=== PATIENT | male | born 1955 | race Caucasian/White ===

== ENCOUNTER → 2016-07-27 | Outpatient (CLI) | payer BC ==
[~2016-07-27] MED LIST: ASPI-435 PO; ATOR-24 PO; DULA0.5I SC; EMPA1TAB; EMPA1TAB3 PO; GLIM4TAB2 PO; LISI5TAB PO; LPR50X PO; METF1000 PO; METFTAB PO; NTRGSL/4 UT; SITA1TAB27 PO; TADA10TA PO
--- NOTE | 2016-07-27 11:07 | DIAGNOSTIC IMAGING REPORT ---
CT LUNG SCREENING, LOW DOSE WITH COMPUTER-AIDED DETECTION (CAD) CLINICAL HISTORY: Lung cancer screening. Smoking history. COMPARISON STUDY: No previous studies for comparison. CT DOSE: 83.23 mGycm TECHNIQUE: Low-dose helical CT was acquired without intravenous contrast from lung apices to bases and reconstructed at 2.5 mm every 2 mm. CAD was utilized for this study. FINDINGS: Thyroid: Imaged portions of the thyroid gland are normal in appearance. Thoracic aorta: There is mild atherosclerotic calcification of the thoracic aorta, which is normal in caliber and demonstrates standard 3 vessel arch anatomy. Heart: The heart is mildly enlarged and without pericardial effusion. The coronary arteries are densely calcified. Lungs and pleural spaces: There is moderate emphysematous change. There is diffuse subpleural reticulation. Mild intralobular septal thickening is present in the lower lobes with mild associated groundglass change. Mild traction bronchiectasis is identified in the lower lobes. No honeycombing is seen. The appearance suggests interstitial lung disease. No airspace consolidation is identified typical for pneumonia and there is no pleural effusion. The trachea and central airways are clear. No concerning pulmonary lesion is identified. Mediastinum: There is no mediastinal lymphadenopathy. Jillian: Not well assessed without IV contrast. Axilla: Clear. Upper abdomen: A small hiatal hernia is identified. Partially visualized upper abdominal viscera is within normal limits. Skeletal structures: There are no lytic or blastic osseous lesions. IMPRESSION: 1. Emphysema. 2. Findings strongly suggest superimposed interstitial lung disease, likely with a NSIP pattern. Consider pulmonology follow-up. 3. No airspace consolidation is identified typical for pneumonia and there is no pleural effusion. 4. No concerning pulmonary lesion is identified. See below. CAD FINDINGS: Overall Lung RADS Category: 1 Lung RADS Management Recommendation: Lung-RADS 1: Continue annual screening in 12 months. Lung RADS Follow Up Date: 2017-07-27 Electronically signed by: Teo Gant M.D. 07/27/2016 11:05 AM Dictated Date/Time: 07/27/2016 10:57 AM
== END | disposition home or self-care (01) ==
LOC: C.CTS 10:11
PROVIDERS: ATTEND Family Medicine
DX: Z12.2 Encounter for screening for malignant neoplasm of respiratory organs (principal); J43.9 Emphysema, unspecified

== ENCOUNTER → 2017-01-08 | Outpatient (CLI) | payer BC ==
[2017-01-08 13:29] LABS: ESTIMATED AVERAGE GLUCOSE 189 mg/dl; HA1C FLAG Normal (Normal)
[2017-01-08 14:08] LABS: BLOOD UREA NITROGEN 13 mg/dl (7-18); BUN/CREATININE RATIO 17.2 (10-20); CALCIUM 9.9 mg/dl (8.5-10.1); CARBON DIOXIDE 24 mmol/L (21-32); CHLORIDE 105 mmol/L (98-107); CREATININE 0.76 mg/dl (0.60-1.40); GLUCOSE 124 mg/dl (70-99); POTASSIUM 4.1 mmol/L (3.5-5.1); SODIUM 136 mmol/L (136-145)
[2017-01-08 14:20] LABS: RATIO 121.1 mcg/mg (0-30.0)
== END | disposition home or self-care (01) ==
LOC: C.LABMFLN 10:43
PROVIDERS: ATTEND Family Medicine
DX: E11.9 Type 2 diabetes mellitus without complications (principal)

== ENCOUNTER → 2017-01-16 | Day surgery (SDC) | payer BC ==
[2017-01-10 09:34] VITALS: BMI 24.0
[~2017-01-16] VITALS: Ht 177.8 cm; Wt 77.3 kg
[~2017-01-16] MED LIST changes: -EMPA1TAB; +LIDOCAINE HCL 2% 2 ML VIAL (20MG/ML) ONE; -METFTAB PO; +PROPOFOL IV EMULSION 10 MG/ML 20 ML VIAL IV ONE; -SITA1TAB27 PO; +SODIUM CHLORIDE 0.9% 500ML 500 ML IV ONE; -TADA10TA PO
[2017-01-16 11:00] VITALS: Ht 177.8 cm; Wt 77.3 kg
[2017-01-16 11:05] VITALS: TEMP 36.7
--- NOTE | 2017-01-16 11:31 | Endo History and Physical ---
History & Physical Date of Service: Jan 16, 2017. Chief Complaint: Screening Referring Physician: Dr. Ding History of Present Illness 61 yo CM who presents for screening colonoscopy. Past Medical History Diabetes, High Cholesterol, [place] Past Surgical History Hx Cardiac Surgery: Yes (HEART CATH, STENTS X2) Hx Internal Defibrillator: No Hx Pacemaker: No Hx Abdominal Surgery: Yes (APPY) Hx of Implantable Prosthesis: No Hx Post-Op Nausea and Vomiting: No Hx Cancer Surgery: Yes (SKIN CANCER REMOVAL) Hx Thoracic Surgery: No Hx Orthopedic: Yes (RT SHOULDER, RT KNEE X2, RT TRIGGER FINGER RELEASE, RT CTR) Hx Urinary Tract Surgery: No Family History None Social History Smoking Status: Current Every Day Smoker Hx Substance Use: No Hx Alcohol Use: Yes (OCCASIONAL) Allergies Coded Allergies: No Known Allergies (Verified , 01/16/17) Current Medications Reported Home Medications Medications Dose Route/Sig Max Daily Dose Days Date Category Trulicity (Dulaglutide) 1.5 Mg/0.5 Ml Inj 1.5 Mg SC Saturday01/10/17 Reported Nitrostat (Nitroglycerin) 0.4 Mg Tab 0.4 Mg UT UD PRN 01/10/17 Reported Aspirin 81 (Aspirin) 81 Mg Tab 1 Tab PO QAM 01/10/17 Reported Glucophage (Metformin Hcl) 1,000 Mg Tab 1,000 Mg PO BID 01/10/17 Reported Jardiance (Empagliflozin) 25 Mg Tab 1 Tab PO QAM 01/10/17 Reported Metoprolol Tartrate 50 Mg Tab 1 Tab PO QAM 12/16/14 Reported Prinivil (Lisinopril) 5 Mg Tab 1 Tab PO QAM 12/16/14 Reported Glimepiride 4 Mg Tab 1 Tab PO BID 12/16/14 Reported Lipitor (Atorvastatin Calcium) 40 Mg Tab 1 Tab PO QAM 12/16/14 Reported Vital Signs Weight (Kilograms): 77.27 Height (Feet): 5 Height (Inches): 10 Date Time Temp Pulse Resp B/P (MAP) Pulse Ox O2 Delivery O2 Flow Rate FiO2 01/16/17 11:05 36.7 62 16 121/73 (89) 98 Room Air Physical Exam General Appearance: WD/WN, no apparent distress Respiratory/Chest: Auscultation: breath sounds normal Cardiovascular: Heart Auscultation: RRR Abdomen: Bowel Sounds: normal Inspection & Palpation: soft, non-distended, no tenderness, guarding & rebound Assessment and Plan Assessment: 61 yo CM who presents for screening colonoscopy. Plan: Proceed with colonoscopy.
[2017-01-16 12:23] VITALS: BP 107/47; PULSE 77; O2SAT 98
--- NOTE | 2017-01-16 12:42 | Anesthesiology Progress Note ---
Anesthesia Post Op Note Date & Time Jan 16, 2017 at 12:42 Vital Signs Pain Intensity: 0 Vital Signs Past 12 Hours Date Time Temp Pulse Resp B/P (MAP) Pulse Ox O2 Delivery O2 Flow Rate FiO2 01/16/17 12:23 77 18 107/47 (67) 98 Room Air 01/16/17 12:08 96 18 91/58 (69) 94 Room Air 01/16/17 11:05 36.7 62 16 121/73 (89) 98 Room Air Notes Mental Status: alert / awake / arousable, participated in evaluation Pt Amnestic to Procedure: Yes Nausea / Vomiting: adequately controlled Pain: adequately controlled Airway Patency, RR, SpO2: stable & adequate BP & HR: stable & adequate Hydration State: stable & adequate Anesthetic Complications: no major complications apparent
--- NOTE | 2017-01-16 12:43 | GI REPORT ---
Procedure Date: 01/16/2017 11:40 AM Procedure: Colonoscopy Indications: Screening for colorectal malignant neoplasm Medicines: Monitored Anesthesia Care Complications: No immediate complications. Estimated Blood Loss: Estimated blood loss: none. Procedure: Pre-Anesthesia Assessment: - Prior to the procedure, a History and Physical was performed, and patient medications and allergies were reviewed. The patient's tolerance of previous anesthesia was also reviewed. The risks and benefits of the procedure and the sedation options and risks were discussed with the patient. All questions were answered, and informed consent was obtained. Prior Anticoagulants: The patient has taken no previous anticoagulant or antiplatelet agents. ASA Grade Assessment: II - A patient with mild systemic disease. After reviewing the risks and benefits, the patient was deemed in satisfactory condition to undergo the procedure. After I obtained informed consent, the scope was passed under direct vision. Throughout the procedure, the patient's blood pressure, pulse, and oxygen saturations were monitored continuously. The scope was introduced through the anus and advanced to the terminal ileum. The colonoscopy was performed without difficulty. The patient tolerated the procedure well. The quality of the bowel preparation was good. The terminal ileum, ileocecal valve, appendiceal orifice, and rectum were photographed. Findings: Three sessile polyps were found in the rectum and in the sigmoid colon. The polyps were 4 to 6 mm in size. These polyps were removed with a hot snare. Resection and retrieval were complete. Non-bleeding internal hemorrhoids were found during retroflexion. The hemorrhoids were small. Impression: - Three 4 to 6 mm polyps in the rectum and in the sigmoid colon, removed with a hot snare. Resected and retrieved. - Non-bleeding internal hemorrhoids. Recommendation: - Resume previous diet. - Continue present medications. - Repeat colonoscopy for surveillance based on pathology results. - Return to primary care physician as previously scheduled. Alexandro Waterman DO 01/16/2017 12:42:42 PM This report has been signed electronically. Note Initiated On: 01/16/2017 11:40 AM I attest to the content of the Intraoperative Record and orders documented therein, exceptions below
--- NOTE | 2017-01-16 12:44 | Discharge Instructions ---
Endoscopy Patient Instructions Date / Procedure(s) Performed Jan 16, 2017. Colonoscopy Allergy Information Coded Allergies: No Known Allergies (Verified , 01/16/17) Discharge Date / Findings Jan 16, 2017. Colon polyps Diverticulosis Internal hemorrhoids Medication Instructions OK to resume all medications today as prescribed Reported Home Medications Medications Dose Route/Sig Max Daily Dose Days Date Category Trulicity (Dulaglutide) 1.5 Mg/0.5 Ml Inj 1.5 Mg SC Saturday01/10/17 Reported Nitrostat (Nitroglycerin) 0.4 Mg Tab 0.4 Mg UT UD PRN 01/10/17 Reported Aspirin 81 (Aspirin) 81 Mg Tab 1 Tab PO QAM 01/10/17 Reported Glucophage (Metformin Hcl) 1,000 Mg Tab 1,000 Mg PO BID 01/10/17 Reported Jardiance (Empagliflozin) 25 Mg Tab 1 Tab PO QAM 01/10/17 Reported Metoprolol Tartrate 50 Mg Tab 1 Tab PO QAM 12/16/14 Reported Prinivil (Lisinopril) 5 Mg Tab 1 Tab PO QAM 12/16/14 Reported Glimepiride 4 Mg Tab 1 Tab PO BID 12/16/14 Reported Lipitor (Atorvastatin Calcium) 40 Mg Tab 1 Tab PO QAM 12/16/14 Reported Provider Instructions Activity Restrictions - No exercising or heavy lifting for 24 hours. - Do not drink alcohol the day of the procedure. - Do not drive a car or operate machinery until the day after the procedure. - Do not make any important decisions or sign important papers in 24 hours after the procedure. Following Day: - Return to full activity which may include returning to work/school. Diet Start your diet with liquids and light foods (jello, soup, juice, toast). Then eat your usual diet if not nauseated. Treatment For Common After Affects For mild abdominal pain, bloating, or excessive gas: - Rest - Eat lightly - Lie on right side Follow-Up Information Follow-up with Dr. Ding as scheduled Anesthesia Information What You Should Know You have had a procedure that required some medicine to reduce anxiety and discomfort. This treatment is called moderate sedation. After receiving the treatment, you may be sleepy, but you will be able to breathe on your own. The effects of the treatment may last for several hours. Follow these instructions along with Activity/Diet recommendations noted above: * Do NOT do anything where dizziness or clumsiness would be dangerous. * Rest quietly at home today, then you can be up and about tomorrow. * Have a responsible person stay with you the rest of today. * You may have had an I.V. today. If so, you may take the dressing off later today. Recommendations Call your doctor if: * Trouble breathing * Continuous vomiting for more than 24 hours * Temperature above 101 degrees * Severe abdominal pain or bloating * Pain not relieved by pain medicine ordered * There is increased drainage or redness from any incision * A large amount of rectal bleeding greater than 2-3 tablespoons. (If you had a polyp/s removed or have hemorrhoids, a small amount of blood - from the rectum is to be expected.) * You have any unanswered questions or concerns. IN THE EVENT OF A SERIOUS EMERGENCY, GO TO THE NEAREST EMERGENCY ROOM Your discharge instructions were prepared by provider Alexandro Waterman. Patient Instructions Signature Page Lucajasmin Morelos Patient (or Guardian) Signature/Date: I have read and understand the instructions given to me by my caregivers. Caregiver/RN/Doctor Signature/Date: The above-named patient and/or guardian has received patient instructions on this date. + Original Patient Signature Page (only) stays with chart. Please make copy for patient.
== END | disposition home or self-care (01) ==
LOC: C.GI 10:02
PROVIDERS: ATTEND Internal Medicine
DX: Z12.11 Encounter for screening for malignant neoplasm of colon (principal); D12.5 Benign neoplasm of sigmoid colon; D12.8 Benign neoplasm of rectum; K64.8 Other hemorrhoids; E11.9 Type 2 diabetes mellitus without complications; E78.00 Pure hypercholesterolemia, unspecified; I25.2 Old myocardial infarction; F17.200 Nicotine dependence, unspecified, uncomplicated; Z79.84 Long term (current) use of oral hypoglycemic drugs; Z79.82 Long term (current) use of aspirin; Z79.899 Other long term (current) drug therapy

== ENCOUNTER → 2017-12-10 | Outpatient (CLI) | payer BC ==
[~2017-12-10] MED LIST changes: +DAPA1TAB8 PO; -LIDOCAINE HCL 2% 2 ML VIAL (20MG/ML) ONE; +OPTIRAY 320 IV PRN; -PROPOFOL IV EMULSION 10 MG/ML 20 ML VIAL IV ONE; -SODIUM CHLORIDE 0.9% 500ML 500 ML IV ONE
--- NOTE | 2017-12-10 12:12 | DIAGNOSTIC IMAGING REPORT ---
ADDENDUM ADDITIONAL FINDINGS: Bilateral indeterminate adrenal nodules measuring up 1.7 cm on the right and 1.6 cm on the left. ADDITIONAL IMPRESSIONS: 3. Hyperenhancing focus in the left hepatic lobe, most likely flash filling hemangioma. The patient has a history of malignancy or underlying hepatocellular risk factors, further evaluation with contrast-enhanced MR of the liver recommended. 4. Indeterminate bilateral adrenal nodules. These may represent represent benign adenomas. Electronically signed by: Karlos Street M.D. 12/10/2017 12:47 PM Dictated Date/Time: 12/10/2017 12:[address] (CHEST) THORAX WITH CLINICAL HISTORY: 62 years-old Male presenting with PULMONARY INTERSTITIAL FIBROSIS. TECHNIQUE: Multidetector CT imaging of the chest was performed after the administration of intravenous contrast. IV contrast: 92 mL of Optiray 320. A dose lowering technique was used consistent with the principles of ALARA (as low as reasonably achievable). COMPARISON: 07/27/2016. CT DOSE (mGy.cm): The estimated cumulative dose is 298.08 mGy.cm. FINDINGS: Border Measurer topogram: Unremarkable. On soft tissue windows, normal thyroid and thoracic inlet. Prominent bilateral hilar lymph nodes may be reactive. Few prominent lymph nodes also noted in the subcarinal region. Atherosclerosis of the aorta. Normal heart size. Coronary artery calcification. No pericardial or pleural effusion. Hyperenhancing focus in the left hepatic lobe suggesting flash filling hemangioma. Mild wall thickening of the esophagus diffusely suggested. On lung windows, redemonstration of apical predominant paraseptal emphysematous changes. Mild bronchial wall thickening. Cystic changes also evident at the lung bases, which may also represent paraseptal emphysematous changes. Convincing evidence of honeycombing, however, there is likely atelectasis in the bilateral lower lobes in a peripheral distribution. Groundglass and reticular opacities in a subpleural distribution evident at the lung bases. No other focal infiltrate. Few punctate fissural solid nodules. Debris noted in the lower trachea and mainstem bronchi. No pneumothorax. On bone windows, degenerative changes of the spine. IMPRESSION: 1. Findings most suggestive of fibrotic changes superimposed on smoking related lung injury. The pattern of suspected underlying fibrotic changes are not characteristic of usual interstitial pneumonia. Other secondary causes of fibrotic change or nonspecific interstitial pneumonia may also be considered. 2. Nonspecific diffuse wall thickening of the esophagus may indicate esophagitis. Electronically signed by: Karlos Street M.D. 12/10/2017 12:10 PM Dictated Date/Time: 12/10/2017 11:56 AM
== END | disposition home or self-care (01) ==
LOC: C.CTS 10:51
PROVIDERS: ATTEND Physician Assistant
DX: J84.10 Pulmonary fibrosis, unspecified (principal); E27.9 Disorder of adrenal gland, unspecified; K22.9 Disease of esophagus, unspecified; K76.9 Liver disease, unspecified

== ENCOUNTER → 2017-12-18 | Day surgery (SDC) | payer BC ==
[2017-12-13 16:08] VITALS: Ht 177.8 cm; Wt 77.7 kg
[~2017-12-18] VITALS: Ht 177.8 cm; Wt 77.7 kg
[~2017-12-18] MED LIST changes: -EMPA1TAB3 PO; +LIDOCAINE HCL 2% 2 ML VIAL (20MG/ML) ONE; -OPTIRAY 320 IV PRN; +PROPOFOL IV EMULSION 10 MG/ML 20 ML VIAL ONE; +SODIUM CHLORIDE 0.9% 500ML 500 ML IV ONE
--- NOTE | 2017-12-18 09:38 | Endo History and Physical ---
History & Physical Date of Service: Dec 18, 2017. Chief Complaint: Abnormal CT scan Referring Physician: Dr. Ding History of Present Illness 62 yo CM who presents for EGD secondary to abnormal CT scan. Past Medical History Diabetes, High Cholesterol, [place] Past Surgical History Hx Cardiac Surgery: Yes (CARDIAC CATH 2 STENTS-2002) Hx Internal Defibrillator: No Hx Pacemaker: No Hx Abdominal Surgery: Yes (APPENDECTOMY,HERNIA) Hx of Implantable Prosthesis: No Hx Post-Op Nausea and Vomiting: No Hx Cancer Surgery: Yes (L EAR SQUAMOUS CELL EXCISION) Hx Thoracic Surgery: No Hx Orthopedic: Yes (RT SHOULDER SCOPE, OPEN RT KNEE SURG X2,R TRIGGER FINGER RELEASE,R CTR) Hx Urinary Tract Surgery: No Family History None Social History Smoking Status: Light Tobacco Smoker Hx Substance Use: No Hx Alcohol Use: Yes (OCCASIONAL SOCIAL) Allergies Coded Allergies: No Known Allergies (Verified , 12/18/17) Current Medications Reported Home Medications Medications Dose Route/Sig Max Daily Dose Days Date Category Farxiga (Dapagliflozin Propanediol) 10 Mg Tab 10 Mg PO QAM 12/13/17 Reported Trulicity (Dulaglutide) 1.5 Mg/0.5 Ml Inj 1.5 Mg SC Saturday01/10/17 Reported Nitrostat (Nitroglycerin) 0.4 Mg Tab 0.4 Mg UT UD PRN 01/10/17 Reported Aspirin 81 (Aspirin) 81 Mg Tab 1 Tab PO QAM 01/10/17 Reported Glucophage (Metformin Hcl) 1,000 Mg Tab 1,000 Mg PO BID 01/10/17 Reported Metoprolol Tartrate 50 Mg Tab 1 Tab PO QAM 12/16/14 Reported Prinivil (Lisinopril) 5 Mg Tab 1 Tab PO QAM 12/16/14 Reported Glimepiride 4 Mg Tab 1 Tab PO BID 12/16/14 Reported Lipitor (Atorvastatin Calcium) 40 Mg Tab 1 Tab PO QAM 12/16/14 Reported Vital Signs Weight (Kilograms): 77.73 Height (Feet): 5 Height (Inches): 10 Physical Exam General Appearance: WD/WN, no apparent distress Respiratory/Chest: Auscultation: breath sounds normal Cardiovascular: Heart Auscultation: RRR Abdomen: Bowel Sounds: normal Inspection & Palpation: soft, non-distended, no tenderness, guarding & rebound Assessment and Plan Assessment: 62 yo CM who presents for EGD secondary to abnormal CT scan. Plan: Proceed with EGD.
--- NOTE | 2017-12-18 10:27 | Discharge Instructions ---
Endoscopy Patient Instructions Date / Procedure(s) Performed Dec 18, 2017. EGD Allergy Information Coded Allergies: No Known Allergies (Verified , 12/18/17) Discharge Date / Findings Dec 18, 2017. Esophagitis Gastritis s/p biopsies Gastritis Medication Instructions 1) Start Protonix 40mg by mouth each morning 1/2 hour prior to breakfast. 2) OK to resume all medications today as prescribed Reported Home Medications Medications Dose Route/Sig Max Daily Dose Days Date Category Farxiga (Dapagliflozin Propanediol) 10 Mg Tab 10 Mg PO QAM 12/13/17 Reported Trulicity (Dulaglutide) 1.5 Mg/0.5 Ml Inj 1.5 Mg SC Saturday01/10/17 Reported Nitrostat (Nitroglycerin) 0.4 Mg Tab 0.4 Mg UT UD PRN 01/10/17 Reported Aspirin 81 (Aspirin) 81 Mg Tab 1 Tab PO QAM 01/10/17 Reported Glucophage (Metformin Hcl) 1,000 Mg Tab 1,000 Mg PO BID 01/10/17 Reported Metoprolol Tartrate 50 Mg Tab 1 Tab PO QAM 12/16/14 Reported Prinivil (Lisinopril) 5 Mg Tab 1 Tab PO QAM 12/16/14 Reported Glimepiride 4 Mg Tab 1 Tab PO BID 12/16/14 Reported Lipitor (Atorvastatin Calcium) 40 Mg Tab 1 Tab PO QAM 12/16/14 Reported Provider Instructions Activity Restrictions - No exercising or heavy lifting for 24 hours. - Do not drink alcohol the day of the procedure. - Do not drive a car or operate machinery until the day after the procedure. - Do not make any important decisions or sign important papers in 24 hours after the procedure. Following Day: - Return to full activity which may include returning to work/school. Diet Start your diet with liquids and light foods (jello, soup, juice, toast). Then eat your usual diet if not nauseated. Treatment For Common After Affects For mild abdominal pain, bloating, or excessive gas: - Rest - Eat lightly - Lie on right side Follow-Up Information Follow-up with Dr. Ding as scheduled Anesthesia Information What You Should Know You have had a procedure that required some medicine to reduce anxiety and discomfort. This treatment is called moderate sedation. After receiving the treatment, you may be sleepy, but you will be able to breathe on your own. The effects of the treatment may last for several hours. Follow these instructions along with Activity/Diet recommendations noted above: * Do NOT do anything where dizziness or clumsiness would be dangerous. * Rest quietly at home today, then you can be up and about tomorrow. * Have a responsible person stay with you the rest of today. * You may have had an I.V. today. If so, you may take the dressing off later today. Recommendations Call your doctor if: * Trouble breathing * Continuous vomiting for more than 24 hours * Temperature above 101 degrees * Severe abdominal pain or bloating * Pain not relieved by pain medicine ordered * There is increased drainage or redness from any incision * A large amount of rectal bleeding greater than 2-3 tablespoons. (If you had a polyp/s removed or have hemorrhoids, a small amount of blood - from the rectum is to be expected.) * You have any unanswered questions or concerns. IN THE EVENT OF A SERIOUS EMERGENCY, GO TO THE NEAREST EMERGENCY ROOM Your discharge instructions were prepared by provider Alexandro Waterman. Patient Instructions Signature Page Luca Morelos Patient (or Guardian) Signature/Date: I have read and understand the instructions given to me by my caregivers. Caregiver/RN/Doctor Signature/Date: The above-named patient and/or guardian has received patient instructions on this date. + Original Patient Signature Page (only) stays with chart. Please make copy for patient.
--- NOTE | 2017-12-18 10:31 | GI REPORT ---
Patient Name: Luca Morelos Procedure Date: 12/18/2017 10:07 AM Date of : 1955 Admit Type: Outpatient Age: 62 Gender: Male Attending MD: Alexandro Waterman DO Procedure: Upper GI endoscopy Providers: Alexandro Waterman DO Referring MD: Teo Ding Indications: Abnormal CT of the GI tract Medicines: Monitored Anesthesia Care Complications: No immediate complications. Estimated Blood Loss: Estimated blood loss: none. Procedure: Pre-Anesthesia Assessment: - Prior to the procedure, a History and Physical was performed, and patient medications and allergies were reviewed. The patient's tolerance of previous anesthesia was also reviewed. The risks and benefits of the procedure and the sedation options and risks were discussed with the patient. All questions were answered, and informed consent was obtained. Prior Anticoagulants: The patient has taken aspirin, last dose was 1 day prior to procedure. ASA Grade Assessment: III - A patient with severe systemic disease. After reviewing the risks and benefits, the patient was deemed in satisfactory condition to undergo the procedure. After obtaining informed consent, the endoscope was passed under direct vision. Throughout the procedure, the patient's blood pressure, pulse, and oxygen saturations were monitored continuously. The scope was introduced through the mouth, and advanced to the second part of duodenum. The upper GI endoscopy was accomplished without difficulty. The patient tolerated the procedure well. Findings: Mildly severe esophagitis with no bleeding was found 38 cm from the incisors. Localized mild inflammation characterized by erythema was found in the gastric antrum. Biopsies were taken with a cold forceps for histology. Localized mild inflammation characterized by erythema was found in the duodenal bulb. Impression: - Mildly severe reflux esophagitis. - Gastritis. Biopsied. - Duodenitis. Recommendation: - Resume previous diet. - Use Protonix (pantoprazole) 40 mg PO daily. - Await pathology results. - Return to primary care physician as previously scheduled. Alexandro Waterman DO 12/18/2017 10:31:13 AM This report has been signed electronically. Note Initiated On: 12/18/2017 10:07 AM Number of Addenda: 0 I attest to the content of the Intraoperative Record and orders documented therein, exceptions below {[id number]}
--- NOTE | 2017-12-18 10:40 | Anesthesiology Progress Note ---
Anesthesia Post Op Note Date & Time Dec 18, 2017 at 10:40 Vital Signs Pain Intensity: 0 Vital Signs Past 12 Hours Date Time Temp Pulse Resp B/P (MAP) Pulse Ox O2 Delivery O2 Flow Rate FiO2 12/18/17 10:24 95 16 119/88 (98) 95 Nasal Cannula 3 12/18/17 09:52 36.8 68 20 126/71 (89) 94 Room Air Notes Mental Status: alert / awake / arousable, participated in evaluation Pt Amnestic to Procedure: Yes Nausea / Vomiting: adequately controlled Pain: adequately controlled Airway Patency, RR, SpO2: stable & adequate BP & HR: stable & adequate Hydration State: stable & adequate Anesthetic Complications: no major complications apparent
[2017-12-18 10:54] VITALS: BP 130/77; PULSE 68; O2SAT 95
== END | disposition home or self-care (01) ==
LOC: C.GI 09:14
PROVIDERS: ATTEND Internal Medicine
DX: R93.3 Abnormal findings on diagnostic imaging of other parts of digestive tract (principal); K21.0 Gastro-esophageal reflux disease with esophagitis; K29.70 Gastritis, unspecified, without bleeding; K29.80 Duodenitis without bleeding; E11.9 Type 2 diabetes mellitus without complications; Z79.84 Long term (current) use of oral hypoglycemic drugs; E78.00 Pure hypercholesterolemia, unspecified; Z79.82 Long term (current) use of aspirin; I10 Essential (primary) hypertension; E78.5 Hyperlipidemia, unspecified; I25.2 Old myocardial infarction; M19.90 Unspecified osteoarthritis, unspecified site; F17.200 Nicotine dependence, unspecified, uncomplicated

== ENCOUNTER 2022-10-04 13:25 | Observation (INO) ==
[2022-10-04] MEDS ORDERED: ASPIRIN CHEW 324 MG PO STA (13:46)
[2022-10-04 14:22] LABS: iSTAT Creatinine 0.8 mg/dl (0.6-1.3); iSTAT Hemoglobin 13.3 g/dl (14.0-18.0); iSTAT Ionized Calcium 1.18 mmol/l (1.12-1.32); iSTAT Potassium 4.5 mmol/L (3.3-5.0)
[2022-10-04 14:26] LABS: Basophils # (auto) 0.04 K/uL (0-0.2); Basophils % (auto) 0.3 %; Eosinophils # (auto) 0.03 K/uL (0-0.50); Eosinophils % (auto) 0.2 %; Hematocrit (blood only) 37.7 % (42.0-52.0); Hemoglobin 12.4 g/dl (14.0-18.0); Immature Granulocytes # (auto) 0.06 K/uL (0.01-0.20); Immature Granulocytes % (auto) 0.5 %; Lymphocytes # (auto) 1.67 K/uL (1.2-3.4); Lymphocytes % (auto) 13.8 %; Mean Corpuscular Hemoglobin 27.6 pg (25.0-34.0); Mean Corpuscular Hgb Conc 32.9 g/dL (32.0-36.0); Mean Platelet Volume 10.1 fL (9.4-12.4); Monocytes # (auto) 1.07 K/uL (0.11-0.59); Monocytes % (auto) 8.8 %; Neutrophils # (auto) 9.24 K/uL (1.40-6.50); Neutrophils % (auto) 76.4 %; Platelet Count 379 K/uL (130-400); RDW Coefficient of Variation 12.8 % (11.5-14.5); RDW Standard Deviation 38.7 fL (36.4-46.3); Red Blood Count 4.49 M/uL (4.70-6.10); White Blood Count 12.11 K/ul (4.8-10.8)
--- NOTE | 2022-10-04 14:33 | XRay Report ---
XR chest 1V portable HISTORY: 67 years-old Male Chest pain, nonspecific COMPARISON: Chest CT 12/10/2017 TECHNIQUE: AP view of the chest FINDINGS: Cardiac silhouette is enlarged. Prior median sternotomy. Ill-defined peripheral prominent mixed inter stitial and alveolar opacities with background emphysema. No pneumothorax or large pleural effusion. Degenerative changes of the shoulders and spine. IMPRESSION: 1. Cardiomegaly without pulmonary edema. 2. Ill-defined peripheral predominant pulmonary opacities are suspicious for an infectious or inflamm atory pneumonitis such as viral pneumonia. 3. Emphysema. ACT 112: Negative or not required by law. The above report was generated using voice recognition software. It may contain grammatical, syntax o r spelling errors. Electronically signed by: Ferdinand Ross M.D. 10/04/2022 2:31 PM
[2022-10-04 14:39] LABS: INR 1.1 (0.9-1.1); Partial Thromboplastin Ratio 1.2; Partial Thromboplastin Time 33.1 Seconds (21.0-31.0); Prothrombin Time 11.6 Seconds (9.0-12.0)
[2022-10-04 14:47] LABS: D Dimer 2290 ug/L FEU (0-500)
[2022-10-04] MEDS ORDERED: DEXTROSE 50% 50 ML SYRINGE IV ONE (14:50)
--- NOTE | 2022-10-04 15:14 | Emergency Department Note ---
History of Present Illness General Chief Complaint: Shortness of Breath/Dyspnea Stated Complaint: SOB, CHEST PAIN, DR DING REFERRED Time Seen by Provider: 10/04/22 13:38 History of Present Illness Provider Complaint: chest pain Onset (ago): day(s) 4 Duration: progressively worsening Onset: during rest Pain Location: right chest Severity: moderate Maximum Pain Intensity: 8 Current Pain Intensity: 8 Quality: + sharp Relieved By: + nothing Exacerbated By: + inspiration Context: no recent illness, no recent surgery, no recent immobilization, no recent travel, no trauma/injury or no history of DVT/PE Associated symptoms: no nausea, no vomiting, no diaphoresis, no dyspnea, no syncope, no fever or no cough Home Medications Medication Instructions Recorded Confirmed Type blood sugar diagnostic (FreeStyle #100 ea 11/25/18 10/04/22 Rx Lite Strips) lancets 28 gauge (FreeStyle #25 ea 11/25/18 10/04/22 Rx Lancets) aspirin 81 mg tablet,delayed 81 mg PO QAM 08/12/20 10/04/22 History release acetaminophen 500 mg oral powder 500 mg PO Q6H PRN 05/19/21 10/04/22 History packet (Tylenol Extra Strength) glimepiride 4 mg tablet 4 mg PO BID 05/26/21 10/04/22 History zinc 50 mg tablet 50 mg PO DAILY 06/01/21 10/04/22 History sitagliptin phosphate 100 mg 100 mg PO DAILY #90 tabs 12/05/21 10/04/22 Rx tablet (Januvia) pen needle, diabetic 32 gauge x #100 ea 12/26/21 10/04/22 Rx 5/32" (BD Ultra-Fine Marianela Pen Needle) atorvastatin 80 mg tablet 80 mg PO QAM #90 tabs 01/24/22 10/04/22 Rx metformin 1,000 mg tablet 1,000 mg PO BID #180 tabs 02/15/22 10/04/22 Rx losartan 25 mg tablet 25 mg PO DAILY #90 tabs 08/30/22 10/04/22 Rx metoprolol succinate 100 mg 100 mg PO DAILY #90 tabs 09/11/22 10/04/22 Rx tablet,extended release 24 hr insulin glargine 100 unit/mL (3 28 - 38 unit (0.28 - 0.38 mL) 09/18/22 10/04/22 Rx mL) subcutaneous pen (Basaglar subcut QPM #15 mL KwikPen U-100 Insulin) Allergies Allergy/AdvReac Type Severity Reaction Status Date / Time No Known Drug Allergies Allergy Unknown Verified 10/04/22 11:43 Past Med/Surg History Medical History Asymptomatic microscopic hematuria CAD (coronary artery disease) follows with [facility] CAD (coronary atherosclerotic disease) DM type 2 (diabetes mellitus, type 2) IDDM Dyspnea GERD (gastroesophageal reflux disease) History of anesthesia reaction woke up during [facility] History of myocardial infarction 2003 HLD (hyperlipidemia) [place] ([place]) HTN (hypertension) Medicare annual wellness visit, subsequent Osteoarthritis of right knee Pleuritic chest pain Prostate cancer screening Pulmonary interstitial fibrosis Right-sided chest pain Tubular adenoma of colon UTI (urinary tract infection) Surgical History History of appendectomy History of cardiac [place] [facility] [place] st[place] History of carpal tunnel surgery of left wrist History of carpal tunnel surgery of right wrist History of colonoscopy History of decompression of median nerve History of ear surgery History of esophagogastroduodenoscopy (EGD) History of hernia repair History of knee surgery Rt History of surgery coccyx History of tonsillectomy Hx of CABG Family History Mother Dementia Father Cancer Other No family history of adverse response to anesthesia Denies family history of Ovarian cancer Prostate cancer Myocardial infarction Breast cancer Colorectal cancer Social History Smoking Status: Former smoker Age Started Using Tobacco: 20; Second Hand Exposure: Yes (hx); Do You Dip or Chew Tobacco: No; Hx Alcohol Use: Yes Alcohol type: beer Hx Substance Use: No Preferred Language: Latvian Communication Ability: Effective Knife Setter Required: No Beliefs That Will Affect Care: None marital status: Current Living Situation: Spouse current occupational status: employed current occupation: [employer] Feels Safe at Home: Yes Childhood Exposure to Second-Hand Smoke: Yes caffeine: Yes (tea, coffee ) Dental Care, Regularly: Yes Physical Activity Frequency: Does not Exercise Seatbelt Use: sometimes Assistive Devices: Glasses Physical Exam Vital Signs Vital Signs - 24 hr 10/04/22 13:26 10/04/22 13:50 10/04/22 13:57 Temperature 37.0 C Temperature Source Temporal Artery Scan Pulse Rate 83 73 Pulse Rate [Apical] 73 Pulse Rhythm [Apical] Regular Respiratory Rate 20 Respiratory Effort / Characteristics Non-Labored Spontaneous Respiratory Depth Normal Respiratory Pattern Regular Blood Pressure 121/68 Blood Pressure [Right Arm] 138/71 Blood Pressure Mean 85 Blood Pressure Mean [Right Arm] 93 Blood Pressure Position [Right Arm] Lying Pulse Oximetry 95 93 Oxygen Delivery Method Room Air Room Air Oxygen Flow Rate Sepsis Recent Fever Within 48 Hours No Sepsis New/Unexplained Change in Mental Status No Sepsis Action Taken by Nursing No Action Required Oxygen Flow Rate - Titration Pulse Oximetry Post Tiitration 10/04/22 13:57 10/04/22 15:04 10/04/22 16:04 Temperature Temperature Source Pulse Rate Pulse Rate [Apical] 70 Pulse Rhythm [Apical] Regular Respiratory Rate 20 Respiratory Effort / Characteristics Non-Labored Respiratory Depth Normal Respiratory Pattern Regular Blood Pressure Blood Pressure [Right Arm] Blood Pressure Mean Blood Pressure Mean [Right Arm] Blood Pressure Position [Right Arm] Pulse Oximetry 93 88 L 96 Oxygen Delivery Method Room Air Nasal Cannula Nasal Cannula Oxygen Flow Rate 0 1 Sepsis Recent Fever Within 48 Hours Sepsis New/Unexplained Change in Mental Status Sepsis Action Taken by Nursing Oxygen Flow Rate - Titration 1.5 Pulse Oximetry Post Tiitration 96 Physical Exam GENERAL: oriented to person, place, and time. appears well-developed and well- nourished. HENT: Exam performed. - Head: Normocephalic and atraumatic. EYES: Conjunctivae and EOM are normal. Right eye exhibits no discharge. Left eye exhibits no discharge. No scleral icterus. NECK: Normal range of motion. Neck supple. No JVD present. CV: Normal rate, regular rhythm, normal heart sounds and intact distal pulses. There is no peripheral edema. Palpable radial pulses bue. PULM/CHEST: Effort normal and breath sounds normal. No respiratory distress. No stridor. no wheezes. no rales. ABD: The abdomen is soft. There is no tenderness. NEURO: Motor and sensation grossly intact. SKIN: Skin is warm and dry. He is not diaphoretic. PSYCH: normal mood and affect. Behavior is normal. Judgment and thought content normal. Course Course 1338: The patient was evaluated in room B7. A complete history and physical exam was performed Cardiac monitoring: An order was placed for continuous cardiac monitoring. The monitor shows a rate of 80 with sinus rhythm interpreted by me 1510: Nursing reports that the patient became hypoxic on room air supplemental oxygen was applied via nasal cannula which improved his oxygen saturation. 1521: Vital signs stable on supplemental oxygen via nasal cannula. Labs show a glucose of 58. 1 amp of D50 given. D-dimer 2290. Will obtain CTA of the chest. 1642: Vital signs stable supplemental oxygen via nasal cannula. Patient's Accu- Chek improved status post [address] of the chest shows no pulmonary emboli but it does show multifocal pneumonia. Patient be treated with Rocephin and azithromycin and given the patient's hypoxia will be admitted to the [facility] team. Administered Medications Discontinued Medications Aspirin (Aspirin Chew 324 Mg) 324 mg PO NOW STA Stop: 10/04/22 13:47 Last Admin: 10/04/22 14:08 Dose: 324 mg Documented By: ISAIAH Dextrose (Dextrose 50% 50 Ml Syringe) 50 ml IV NOW ONE Stop: 10/04/22 14:51 Last Admin: 10/04/22 14:53 Dose: 50 ml Documented By: ISAIAH Ioversol (Optiray 320 500ml) 110 ml IV ONCE ONE Stop: 10/04/22 16:00 Last Admin: 10/04/22 15:59 Dose: 110 ml Documented By: CARLOTTA Medical Decision Making Laboratory Data Attestation: I reviewed the patient's lab results. 10/04/22 13:58 10/04/22 13:58 Labs: Lab Results 10/04/22 10/04/22 10/04/22 Range/Units 13:56 13:58 13:58 WBC 12.11 H (4.8-10.8) K/ul RBC 4.49 L (4.70-6.10) M/uL Hgb 12.4 L (14.0-18.0) g/dl POC Hgb 13.3 L (14.0-18.0) g/dl Hct 37.7 L (42.0-52.0) % POC Hct 39 L (42-52) % MCV 84.0 (80.0-100.0) fL MCH 27.6 (25.0-34.0) pg MCHC 32.9 (32.0-36.0) g/dL RDW Std Deviation 38.7 (36.4-46.3) fL RDW Coeff of Megan 12.8 (11.5-14.5) % Plt Count 379 (130-400) K/uL MPV 10.1 (9.4-12.4) fL Immature Gran % (Auto) 0.5 % Neut % (Auto) 76.4 % Lymph % (Auto) 13.8 % Marin % (Auto) 8.8 % Eos % (Auto) 0.2 % Baso % (Auto) 0.3 % Neut # (Auto) 9.24 H (1.40-6.50) K/uL Lymph # (Auto) 1.67 (1.2-3.4) K/uL Marin # (Auto) 1.07 H (0.11-0.59) K/uL Eos # (Auto) 0.03 (0-0.50) K/uL Baso # (Auto) 0.04 (0-0.2) K/uL Immature Gran # (Auto) 0.06 (0.01-0.20) K/uL PT 11.6 (9.0-12.0) Seconds INR 1.1 (0.9-1.1) APTT 33.1 H (21.0-31.0) Seconds PTT Ratio 1.2 D-Dimer 2290 H* (0-500) ug/L FEU POC Sodium 137 (135-144) mmol/L Sodium (136-145) mmol/L POC Potassium 4.5 (3.3-5.0) mmol/L Potassium (3.5-5.1) mmol/L POC Chloride 103 (101-112) mmol/L Chloride (98-107) mmol/L Carbon Dioxide (21-32) mmol/L POC Total CO2 23 L (24-31) mmol/L Anion Gap (3-11) POC Anion Gap 17.0 (16-25) mmol/L POC BUN 15 (7-18) mg/dl BUN (6-23) mg/dl Creatinine (0.6-1.4) mg/dl POC Creatinine 0.8 (0.6-1.3) mg/dl Est Cr Clr Drug Dosing ml/min Est GFR ( Amer) ml/min Est GFR (Non-Af Amer) ml/min BUN/Creatinine Ratio (10-20) Glucose (70-99(Fasting)) mg/dl POC Glucose (70-99) mg/dl POC Glucose (other) 58 L* (70-99) mg/dl Calcium (8.6-10.3) mg/dl POC Ioniz Calcium Braulio 1.18 (1.12-1.32) mmol/l Troponin I High Sens (0-20) pg/ml Lipase (11-82) U/L SARS-CoV-2, RNA, NAAT (NEGATIVE) 10/04/22 10/04/22 10/04/22 Range/Units 13:58 14:13 14:49 WBC (4.8-10.8) K/ul RBC (4.70-6.10) M/uL Hgb (14.0-18.0) g/dl POC Hgb (14.0-18.0) g/dl Hct (42.0-52.0) % POC Hct (42-52) % MCV (80.0-100.0) fL MCH (25.0-34.0) pg MCHC (32.0-36.0) g/dL RDW Std Deviation (36.4-46.3) fL RDW Coeff of Megan (11.5-14.5) % Plt Count (130-400) K/uL MPV (9.4-12.4) fL Immature Gran % (Auto) % Neut % (Auto) % Lymph % (Auto) % Marin % (Auto) % Eos % (Auto) % Baso % (Auto) % Neut # (Auto) (1.40-6.50) K/uL Lymph # (Auto) (1.2-3.4) K/uL Marin # (Auto) (0.11-0.59) K/uL Eos # (Auto) (0-0.50) K/uL Baso # (Auto) (0-0.2) K/uL Immature Gran # (Auto) (0.01-0.20) K/uL PT (9.0-12.0) Seconds INR (0.9-1.1) APTT (21.0-31.0) Seconds PTT Ratio D-Dimer (0-500) ug/L FEU POC Sodium (135-144) mmol/L Sodium 136 (136-145) mmol/L POC Potassium (3.3-5.0) mmol/L Potassium 4.4 (3.5-5.1) mmol/L POC Chloride (101-112) mmol/L Chloride 102 (98-107) mmol/L Carbon Dioxide 24 (21-32) mmol/L POC Total CO2 (24-31) mmol/L Anion Gap 10 (3-11) POC Anion Gap (16-25) mmol/L POC BUN (7-18) mg/dl BUN 16 (6-23) mg/dl Creatinine 0.90 (0.6-1.4) mg/dl POC Creatinine (0.6-1.3) mg/dl Est Cr Clr Drug Dosing 80.0 ml/min Est GFR ( Amer) 100.6 ml/min Est GFR (Non-Af Amer) 86.8 ml/min BUN/Creatinine Ratio 17.8 (10-20) Glucose 54 L (70-99(Fasting)) mg/dl POC Glucose 52 L* (70-99) mg/dl POC Glucose (other) (70-99) mg/dl Calcium 9.7 (8.6-10.3) mg/dl POC Ioniz Calcium Braulio (1.12-1.32) mmol/l Troponin I High Sens 7.1 (0-20) pg/ml Lipase 5 L (11-82) U/L SARS-CoV-2, RNA, NAAT NEGATIVE (NEGATIVE) 10/04/22 Range/Units 15:09 WBC (4.8-10.8) K/ul RBC (4.70-6.10) M/uL Hgb (14.0-18.0) g/dl POC Hgb (14.0-18.0) g/dl Hct (42.0-52.0) % POC Hct (42-52) % MCV (80.0-100.0) fL MCH (25.0-34.0) pg MCHC (32.0-36.0) g/dL RDW Std Deviation (36.4-46.3) fL RDW Coeff of Megan (11.5-14.5) % Plt Count (130-400) K/uL MPV (9.4-12.4) fL Immature Gran % (Auto) % Neut % (Auto) % Lymph % (Auto) % Marin % (Auto) % Eos % (Auto) % Baso % (Auto) % Neut # (Auto) (1.40-6.50) K/uL Lymph # (Auto) (1.2-3.4) K/uL Marin # (Auto) (0.11-0.59) K/uL Eos # (Auto) (0-0.50) K/uL Baso # (Auto) (0-0.2) K/uL Immature Gran # (Auto) (0.01-0.20) K/uL PT (9.0-12.0) Seconds INR (0.9-1.1) APTT (21.0-31.0) Seconds PTT Ratio D-Dimer (0-500) ug/L FEU POC Sodium (135-144) mmol/L Sodium (136-145) mmol/L POC Potassium (3.3-5.0) mmol/L Potassium (3.5-5.1) mmol/L POC Chloride (101-112) mmol/L Chloride (98-107) mmol/L Carbon Dioxide (21-32) mmol/L POC Total CO2 (24-31) mmol/L Anion Gap (3-11) POC Anion Gap (16-25) mmol/L POC BUN (7-18) mg/dl BUN (6-23) mg/dl Creatinine (0.6-1.4) mg/dl POC Creatinine (0.6-1.3) mg/dl Est Cr Clr Drug Dosing ml/min Est GFR ( Amer) ml/min Est GFR (Non-Af Amer) ml/min BUN/Creatinine Ratio (10-20) Glucose (70-99(Fasting)) mg/dl POC Glucose 186 H (70-99) mg/dl POC Glucose (other) (70-99) mg/dl Calcium (8.6-10.3) mg/dl POC Ioniz Calcium Braulio (1.12-1.32) mmol/l Troponin I High Sens (0-20) pg/ml Lipase (11-82) U/L SARS-CoV-2, RNA, NAAT (NEGATIVE) Imaging Data Chest x-ray: Attestation: I personally reviewed and interpreted this imaging study as follows: My impression: Chest x-ray: Faint bibasilar opacities. Radiologist's impression: XR chest 1V portable HISTORY: 67 years-old Male Chest pain, nonspecific COMPARISON: Chest CT 12/10/2017 TECHNIQUE: AP view of the chest FINDINGS: Cardiac silhouette is enlarged. Prior median sternotomy. Ill-defined peripheral prominent mixed interstitial and alveolar opacities with background emphysema. No pneumothorax or large pleural effusion. Degenerative changes of the shoulders and spine. IMPRESSION: 1. Cardiomegaly without pulmonary edema. 2. Ill-defined peripheral predominant pulmonary opacities are suspicious for an infectious or inflammatory pneumonitis such as viral pneumonia. 3. Emphysema. ACT 112: Negative or not required by law. The above report was generated using voice recognition software. It may contain grammatical, syntax or spelling errors. Electronically signed by: Ferdinand Ross M.D. 10/04/2022 2:31 PM Dictated:10/04/22 1429 Transcribed: 10/04/[address] scan - chest: Radiologist's impression: CT angio chest PE protocol HISTORY: 67 years-old Male with ro pe. Acute shortness of breath TECHNIQUE: Multiple CTA images of the chest were obtained after the intravenous administration of 110 ml Optiray. Coronal and sagittal MIPS were obtained from the axial data set and were submitted for review. All measurements were obtained according to NASCET criteria. A dose lowering technique was utilized adhering to the principles of ALARA. COMPARISON: Chest radiograph of same day, chest CT 12/10/2017 FINDINGS: CTA: Mild cardiomegaly. Extensive coronary artery calcifications. Prior median sternotomy with CABG. Atherosclerosis of the aorta without aneurysm. Unremarkable pulmonary arterial tree. No pulmonary emboli identified. CT CHEST: Enlarged heterogeneous thyroid has increased in size compared to the prior study. Mediastinal and hilar lymphadenopathy includes subcarinal lymph nodes measuring up to 3.1 x 2.1 cm. Trace right pleural effusion. Emphysema with bronchial wall thickening. Mild bibasilar groundglass opacities with patchy nodular areas of consolidation within the upper lobes. The left upper lobe consolidation extends towards the left hilum. Reticular interstitial opacities suggestive of fibrosis. Mild intralobular septal thickening. Nonspecific diffuse esophageal wall thickening. Unremarkable soft tissues. No acute fracture. IMPRESSION: 1. No pulmonary emboli identified. 2. Patchy multilobar airspace opacities within the lungs again noted suggestive of multifocal pneumonia. Follow-up chest CT after treatment course recommended in order to document resolution. 3. Emphysema with tracheobronchial secretions. 4. A component of mild pulmonary edema would be difficult to exclude. 4. Mediastinal and hilar lymphadenopathy. Attention at follow-up recommended. ACT 112: Negative or not required by law. The above report was generated using voice recognition software. It may contain grammatical, syntax or spelling errors. Electronically signed by: Ferdinand Ross M.D. 10/04/2022 4:19 PM Dictated:10/04/22 1610 Transcribed: 10/04/22 161 ECG Data Attestation: I personally reviewed and interpreted this ECG as follows: Indication: chest pain and SOB/dyspnea Rate (beats per minute): 79 Rhythm: normal sinus Findings: + 1st degree AV block; no PVC, no ST depression, no ST elevation or no prolonged QT MDM Narrative 1338: The patient was evaluated in room B7. A complete history and physical exam was performed Cardiac monitoring: An order was placed for continuous cardiac monitoring. The monitor shows a rate of 80 with sinus rhythm interpreted by me 1510: Nursing reports that the patient became hypoxic on room air supplemental oxygen was applied via nasal cannula which improved his oxygen saturation. 1521: Vital signs stable on supplemental oxygen via nasal cannula. Labs show a glucose of 58. 1 amp of D50 given. D-dimer 2290. Will obtain CTA of the chest. 1642: Vital signs stable supplemental oxygen via nasal cannula. Patient's Accu- Chek improved status post [address] of the chest shows no pulmonary emboli but it does show multifocal pneumonia. Patient be treated with Rocephin and azithromycin and given the patient's hypoxia will be admitted to the [facility] team. Impression & Plan Hypoxia, Pneumonia, Hypoglycemia Critical Care Time Critical Care Time: Yes Total Critical Care Time: 40 I have personally spent greater than 40 minutes of critical care time in the direct management of this patient. This includes bedside care, interpretation of diagnostic studies, and testing, discussion with consultants, patient, and family members, and other required patient management activities. This 40 minutes is in excess of all separately billable procedures. Discharge Plan Visit Data Chief Complaint: Shortness of Breath/Dyspnea Stated Complaint: SOB, CHEST PAIN, DR DING REFERRED ED Provider: Rui Foster Discharge Problem: Hypoxia, Pneumonia, Hypoglycemia Patient Disposition: Admitted As Inpatient Forms Stand Alone Forms: My [facility] Prescriptions Prescriptions: No Action Januvia 100 mg tablet 100 mg PO DAILY Qty: 90 3RF Rx Instructions: take with breakfast for diabetes (DME) pen needle, diabetic [BD Ultra-Fine Marianela Pen Needle] 32 gauge x 5/32" needle See Dose Instructions .ROUTE .MEDSUPPLY Qty: 100 3RF Dose Instruction: As directed Rx Instructions: use once daily As directed DX:E11.9 atorvastatin 80 mg tablet 80 mg PO QAM Qty: 90 3RF metformin 1,000 mg tablet 1,000 mg PO BID Qty: 180 3RF losartan 25 mg tablet 25 mg PO DAILY Qty: 90 3RF Rx Instructions: for diabetic kidney protection insulin glargine [Basaglar KwikPen U-100 Insulin] 100 unit/mL (3 mL) insulin pen 28 - 38 unit subcut QPM Qty: 15 11RF Tylenol Extra Strength 500 mg powder in packet 500 mg PO Q6H PRN metoprolol succinate 100 mg tablet extended release 24 hr 100 mg PO DAILY Qty: 90 3RF glimepiride 4 mg tablet 4 mg PO BID Rx Instructions: meals (DME) FreeStyle Lite Strips strip See Dose Instructions .ROUTE .MEDSUPPLY Qty: 100 3RF Dose Instruction: As directed Rx Instructions: As directed once a day (DME) lancets [FreeStyle Lancets] 28 gauge misc See Dose Instructions .ROUTE .MEDSUPPLY Qty: 25 0RF Dose Instruction: As directed Rx Instructions: As directed once a day zinc 50 mg tablet 50 mg PO DAILY Rx Instructions: gummy aspirin 81 mg tablet,delayed release (DR/EC) 81 mg PO QAM Referrals Referrals: Teo Ding MD [Primary Care Provider] -
[2022-10-04] MEDS ORDERED: OPTIRAY 320 500ml IV ONE (15:59)
[2022-10-04 16:17] LABS: Troponin I High Sensitivity 7.1 pg/ml (0-20)
--- NOTE | 2022-10-04 16:21 | CT Scan Report ---
CT angio chest PE protocol HISTORY: 67 years-old Male with ro pe. Acute shortness of breath TECHNIQUE: Multiple CTA images of the chest were obtained after the intravenous administration of 110 ml Optiray. Coronal and sagittal MIPS were obtained from the axial data set and were submitted for review. All measurements were obtained according to NASCET criteria. A dose lowering technique was u tilized adhering to the principles of ALARA. COMPARISON: Chest radiograph of same day, chest CT 12/10/2017 FINDINGS: CTA: Mild cardiomegaly. Extensive coronary artery calcifications. Prior median sternotomy with CABG. Ather osclerosis of the aorta without aneurysm. Unremarkable pulmonary arterial tree. No pulmonary emboli i dentified. CT CHEST: Enlarged heterogeneous thyroid has increased in size compared to the prior study. Mediastinal and hil ar lymphadenopathy includes subcarinal lymph nodes measuring up to 3.1 x 2.1 cm. Trace right pleural effusion. Emphysema with bronchial wall thickening. Mild bibasilar groundglass opacities with patchy nodular areas of consolidation within the upper lobes. The left upper lobe consolidation extends towa rds the left hilum. Reticular interstitial opacities suggestive of fibrosis. Mild intralobular septal thickening. Nonspecific diffuse esophageal wall thickening. Unremarkable soft tissues. No acute fracture. IMPRESSION: 1. No pulmonary emboli identified. 2. Patchy multilobar airspace opacities within the lungs again noted suggestive of multifocal pneumon ia. Follow-up chest CT after treatment course recommended in order to document resolution. 3. Emphysema with tracheobronchial secretions. 4. A component of mild pulmonary edema would be difficult to exclude. 4. Mediastinal and hilar lymphadenopathy. Attention at follow-up recommended. ACT 112: Negative or not required by law. The above report was generated using voice recognition software. It may contain grammatical, syntax o r spelling errors. Electronically signed by: Ferdinand Ross M.D. 10/04/2022 4:19 PM
[2022-10-04] MEDS ORDERED: AZITHROMYCIN 250 MG TAB PO ONE (16:22)
[2022-10-04] MEDS ORDERED: cefTRIAXone SODIUM 1,000 MG in DEXTROSE 5% AD-VAN 50 ML IV STA (16:22)
[2022-10-04 16:33] LABS: Calcium 9.7 mg/dl (8.6-10.3); Potassium 4.4 mmol/L (3.5-5.1)
[2022-10-04 16:39] LABS: BUN Creatinine Ratio 17.8 (10-20); Est GFR (African American) 100.6 ml/min; Est GFR (Non-African American) 86.8 ml/min
--- NOTE | 2022-10-04 17:51 | History & Physical Report ---
Date of Service October 04, 2022 Assessment & Plan (1) Pneumonia: Plan: Patient presents with multifocal pneumonia on a background of chronic lung disease beginnings of COPD. Patient will be continued on ceftriaxone and azithromycin as ordered emergency permit blood cultures were added Patient of aspiration precautions and speech therapy evaluation for his complaints of coughing when eating. (2) CAD (coronary atherosclerotic disease): Plan: Chronic and stable coronary artery disease initially pain was pleuritic He will continue on aspirin and atorvastatin metoprolol and losartan (3) Diabetes mellitus type 2, uncontrolled: Plan: Patient on a multimodal approach for diabetic control including Sitagliptin, glimepiride and metformin short acting and long-acting insulin. While hospitalized all of his oral medications held and be on insulin sliding scale with glargine 28 which is low end of his sliding scale for glargine (4) Chronic gastritis: Plan: Patient has a history of reflux issues and swallowing issues reported endoscopy as an outpatient said he tried a pill for a while but did not help him at all. He currently is no longer taking any PPIs History of Present Illness Primary Care Provider: Teo Ding MD Patient presents to the ER due to shortness of breath as referral from his physician's office initially with concern for work-up of chest pain with right- sided pleuritic chest pain. Although having evaluation in the ER for chest pain he was found eventually to have multifocal pneumonia which is fairly significant on CT scan. Patient has a history of smoking and does have some early changes of COPD. Patient says in retrospect been coughing for 2 weeks has been around no ill contacts initially was COVID-negative in the ER. His chest pain initially came in the left side but progress towards right-sided is pleuritic and still present on initial evaluation High sensitive troponin ER was negative D-dimer was elevated CT angiogram ruled out pulmonary embolism but does confer multifocal pneumonia. Patient was given ceftriaxone and azithromycin Patient does endorse coughing when eating him and on for some time he saw his physician for some issues with swallowing reportedly had an endoscopy however we have no records of this Patient was seen on any gastroenterology the past for colonoscopies. Allergies Allergy/AdvReac Type Severity Reaction Status Date / Time No Known Drug Allergies Allergy Unknown Verified 10/04/22 11:43 Home Medications Medication Instructions Recorded Confirmed Type blood sugar diagnostic (FreeStyle #100 ea 11/25/18 10/04/22 Rx Lite Strips) lancets 28 gauge (FreeStyle #25 ea 11/25/18 10/04/22 Rx Lancets) aspirin 81 mg tablet,delayed 81 mg PO QAM 08/12/20 10/04/22 History release acetaminophen 500 mg oral powder 500 mg PO Q6H PRN Pain 05/19/21 10/04/22 History packet (Tylenol Extra Strength) glimepiride 4 mg tablet 4 mg PO BID 05/26/21 10/04/22 History zinc 50 mg tablet 50 mg PO DAILY 06/01/21 10/04/22 History sitagliptin phosphate 100 mg 100 mg PO DAILY #90 tabs 12/05/21 10/04/22 Rx tablet (Januvia) pen needle, diabetic 32 gauge x #100 ea 12/26/21 10/04/22 Rx 5/32" (BD Ultra-Fine Marianela Pen Needle) atorvastatin 80 mg tablet 80 mg PO QAM #90 tabs 01/24/22 10/04/22 Rx metformin 1,000 mg tablet 1,000 mg PO BID #180 tabs 02/15/22 10/04/22 Rx losartan 25 mg tablet 25 mg PO DAILY #90 tabs 08/30/22 10/04/22 Rx metoprolol succinate 100 mg 100 mg PO DAILY #90 tabs 09/11/22 10/04/22 Rx tablet,extended release 24 hr insulin glargine 100 unit/mL (3 28 - 38 unit (0.28 - 0.38 mL) 09/18/22 10/04/22 Rx mL) subcutaneous pen (Basaglar subcut QPM #15 mL KwikPen U-100 Insulin) Past Med/Surg History Medical History (Updated 10/04/22 @ 16:45 by Rui Foster MD) Asymptomatic microscopic hematuria CAD (coronary artery disease) follows with [facility] CAD (coronary atherosclerotic disease) DM type 2 (diabetes mellitus, type 2) IDDM Dyspnea GERD (gastroesophageal reflux disease) History of anesthesia reaction woke up during [facility] History of myocardial infarction 2003 HLD (hyperlipidemia) [place] (hard of hearing) HTN (hypertension) Medicare annual wellness visit, subsequent Osteoarthritis of right knee Pleuritic chest pain Prostate cancer screening Pulmonary interstitial fibrosis Right-sided chest pain Tubular adenoma of colon UTI (urinary tract infection) Surgical History History of appendectomy History of cardiac catheterization 2004 - [facility] [place] - 2 stents History of carpal tunnel surgery of left wrist History of carpal tunnel surgery of right wrist History of colonoscopy History of decompression of median nerve History of ear surgery History of esophagogastroduodenoscopy (EGD) History of hernia repair History of knee surgery Rt History of surgery coccyx History of tonsillectomy Hx of CABG Family History Mother Dementia Father Cancer Other No family history of adverse response to anesthesia Denies family history of Ovarian cancer Prostate cancer Myocardial infarction Breast cancer Colorectal cancer Social History Smoking Status: Former smoker Age Started Using Tobacco: 20; Second Hand Exposure: Yes (hx); Do You Dip or Chew Tobacco: No; Hx Alcohol Use: Yes Alcohol type: beer Hx Substance Use: No Preferred Language: Moldovan Communication Ability: Effective Wiring Technician Required: No Beliefs That Will Affect Care: None marital status: Current Living Situation: Spouse current occupational status: employed current occupation: [employer] Feel Safe at Home: Yes Childhood Exposure to Second-Hand Smoke: Yes caffeine: Yes (tea, coffee ) Dental Care, Regularly: Yes Physical Activity Frequency: Does not Exercise Seatbelt Use: sometimes Assistive Devices: Glasses Review of Systems Review of Systems: Mild distress and fatigue no headache, no visual changes No speech issues with patient states that he frequently coughs when eating and gets things on the wrong pipe frequently Presents with sharp pleuritic chest pain but no pressure or palpitations Increasing shortness of breath and productive cough over the last 2 weeks no abdominal pain, nausea or vomiting, diarrhea or constipation no dysuria, hematuria or frequency no focal joint pain or swelling no back pain, CVA tenderness or radicular pain no bruising, bleeding or rashes no focal signs of weakness or numbness or altered sensation no complaints of anxiety or depression.. Physical Exam Physical Exam: The patient appeared well nourished and normally developed. Vital signs as documented. Head exam is normocephalic atraumatic Neck is without JVD, thyromegaly, or carotid bruits. Lungs are bibasilar rhonchi approximately one third of the way up no dullness or egophony Cardiac exam, Rhythm is regular.. No murmurs, rubs or gallops. Abdominal exam reveals normal bowel sounds, soft non tender, no masses Extremities are nonedematous and both pedal pulses are present Neurologic exam is alert and oriented, no focal loss of strength or sensation Skin is without bruises or rashes Psychologically is without concerns for anxiety or depression.. Results & Data Results & Data Vital Signs (Past 12 Hours) Vital Signs Temp Pulse Pulse Resp BP BP Pulse Ox 10/04/22 16:04 70 20 96 10/04/22 15:04 88 L 10/04/22 13:57 93 10/04/22 13:57 73 20 138/71 93 10/04/22 13:50 73 10/04/22 13:26 98.6 F 83 121/68 95 O2 Del Method O2 Flow Rate 10/04/22 16:04 Nasal Cannula 1 10/04/22 15:04 Nasal Cannula 0 10/04/22 13:57 Room Air 10/04/22 13:57 Room Air 10/04/22 13:50 10/04/22 13:26 Room Air Laboratory Results Reviewed CBC reviewed chemistry reviewed troponin reviewed results of imaging in the emergency department ECG Additional Comments: Normal sinus rhythm with first-degree AV block Code Status & VTE Plan VTE Prophylaxis Plan VTE Prophylaxis will be ordered: Yes PG Care Time/CCT Total # of Minutes Spent Total Time Spent with Patient: Total time spent is greater than 50% in coordination of care (as documented) at patient's floor/unit and/or counseling patient: Coding Level of Care Code 08436 INT INP/OBS CARE 3/75MIN Diagnoses Pneumonia J18.9 Laterality: unspecified laterality Lung location: unspecified part of lung Pneumonia type: due to unspecified organism CAD (coronary atherosclerotic disease) I25.10 Diabetes mellitus type 2, uncontrolled E11.65 Chronic gastritis K29.50 (1) Pneumonia Laterality: unspecified laterality Lung location: unspecified part of lung Pneumonia type: due to unspecified organism Qualified Code(s): J18.9 - Pneumonia, unspecified organism
[2022-10-04] MEDS ORDERED: ACETAMINOPHEN 500 MG TAB PO PRN (19:49)
[2022-10-04] MEDS ORDERED: ONDANSETRON INJ 2 MG/ML 2 ML VIAL IV PRN (19:49)
[2022-10-04] MEDS ORDERED: LANTUS PER UNIT CHARGE SQ SCH (21:00)
[2022-10-04] MEDS: ENOXAPARIN INJ 40 MG/0.4 ML SYR SQ SCH (21:37)
[2022-10-04] MEDS: INSULIN ASPART PER UNIT CHARGE SC SCH (21:37)
[2022-10-04] MEDS: guaiFENesin 600 MG TABCR PO SCH (21:38)
[2022-10-04 23:24] LABS: Adenovirus PCR Not Detected (NotDetected); Bordetella parapertussis PCR Not Detected (NotDetected); Bordetella pertussis PCR Not Detected (NotDetected); Chlamydia pneumoniae PCR Not Detected (NotDetected); Coronavirus 229E PCR Not Detected (NotDetected); Coronavirus CoV-2 (COVID19)PCR Not Detected (NotDetected); Coronavirus HKU1 PCR Not Detected (NotDetected); Coronavirus NL63 PCR Not Detected (NotDetected); Coronavirus OC43PCR Not Detected (NotDetected); Human Metapneumovirus PCR Not Detected (NotDetected); Influenza A PCR Not Detected (NotDetected); Influenza B PCR Not Detected (NotDetected); Mycoplasma pneumoniae PCR Not Detected (NotDetected); Parainfluenza Virus 1 PCR Not Detected (NotDetected); Parainfluenza Virus 2 PCR Not Detected (NotDetected); Parainfluenza Virus 3 PCR Not Detected (NotDetected); Parainfluenza Virus 4 PCR Not Detected (NotDetected); Respiratory Syncytial VirusPCR Not Detected (NotDetected); Rhinovirus/Enterovirus PCR Not Detected (NotDetected)
[2022-10-05 07:06] LABS: Hematocrit (blood only) 31.5 % (42.0-52.0); Hemoglobin 10.5 g/dl (14.0-18.0); Mean Corpuscular Hemoglobin 27.3 pg (25.0-34.0); Mean Corpuscular Hgb Conc 33.3 g/dL (32.0-36.0); Mean Platelet Volume 9.5 fL (9.4-12.4); Platelet Count 322 K/uL (130-400); RDW Coefficient of Variation 12.9 % (11.5-14.5); RDW Standard Deviation 38.7 fL (36.4-46.3); Red Blood Count 3.84 M/uL (4.70-6.10); White Blood Count 9.19 K/ul (4.8-10.8)
[2022-10-05 07:20] LABS: BUN Creatinine Ratio 21.3 (10-20); Calcium 8.9 mg/dl (8.6-10.3); Est GFR (African American) 105.6 ml/min; Est GFR (Non-African American) 91.1 ml/min; Potassium 4.2 mmol/L (3.5-5.1)
[2022-10-05] MEDS ORDERED: SITagliptin PHOSPHATE 100 MG TAB PO SCH (09:00)
[2022-10-05] MEDS: INSULIN ASPART PER UNIT CHARGE SC SCH ×5 (09:36→21:11)
[2022-10-05] MEDS: guaiFENesin 600 MG TABCR PO SCH ×2 (09:40→21:16)
[2022-10-05] MEDS: ATORVASTATIN 40 MG TAB PO SCH (09:40)
[2022-10-05] MEDS: METOPROLOL SUCC 50MG EXT REL TAB PO SCH (09:41)
[2022-10-05] MEDS: ASPIRIN 81 MG ECTAB PO SCH (09:41)
[2022-10-05] MEDS: LOSARTAN POTASSIUM 25 MG TAB PO SCH (09:41)
[2022-10-05] MEDS ORDERED: MoRPHine SULFATE 2 MG/ML CARP IV PRN (09:47)
[2022-10-05] MEDS ORDERED: MoRPHine SULFATE 4 MG/ML 1 ML CARP\\VIAL IV PRN (09:47)
[2022-10-05] MEDS ORDERED: KETOROLAC TROMETHAMINE 15 MG/ML VIAL IV ONE (10:00)
[2022-10-05] MEDS ORDERED: KETOROLAC TROMETHAMINE 15 MG/ML VIAL IV PRN (14:18)
--- NOTE | 2022-10-05 14:54 | Fluoroscopy Report ---
FL video swallow CLINICAL HISTORY: 67 years-old Male with assess for aspiration. Dysphagia TECHNIQUE: Video fluoroscopic evaluation of swallowing was performed in the AP and lateral projection s by the speech pathology staff. The patient is fed varying consistencies of barium. FLUOROSCOPY TIME: 1.17 minutes. 2337 images. 8.09 mGy COMPARISON STUDY: None. FINDINGS: There is normal hyoid excursion and epiglottic deflection. No significant penetration or as piration identified. Swallowing function is within normal limits. IMPRESSION: 1. No aspiration identified. 2. Please see the speech pathologist report for detailed findings and recommendations. ACT 112: Negative or not required by law. Electronically signed by: Ferdinand Ross M.D. 10/05/2022 2:53 PM
[2022-10-05] MEDS ORDERED: cefTRIAXone SODIUM 2,000 MG in DEXTROSE 5% 50 ML IV SCH (17:00)
[2022-10-05] MEDS ORDERED: AZITHROMYCIN 500 MG in DEXTROSE 5% 250 ML IV ONE (17:00)
--- NOTE | 2022-10-05 18:42 | Hospitalist Progress Note ---
Date of Service October 05, 2022 Assessment & Plan (1) Pneumonia: Plan: Patient presents with multifocal pneumonia on a background of chronic lung disease beginnings of COPD. Reduction leukocytosis while on ceftriaxone and azithromycin Negative to date blood cultures speech therapy perform swallowing evaluation and ruled out aspiration Curb sided pulmonary medicine look at CT scan did not feel any intervention is needed during this hospital stable would recommend outpatient pulmonary follow- up (2) CAD (coronary atherosclerotic disease): Plan: Remains chronic and stable coronary artery disease initially pain was pleuritic He will continue on aspirin and atorvastatin metoprolol and losartan (3) Diabetes mellitus type 2, uncontrolled: Plan: Patient on a multimodal approach for diabetic control including Sitagliptin, glimepiride and metformin short acting and long-acting insulin. While hospitalized all of his oral medications held and be on insulin sliding scale with glargine which will be increased due to hyperglycemia (4) Chronic gastritis: Plan: Patient has a history of reflux issues and swallowing issues reported endoscopy as an outpatient said he tried a pill for a while but did not help him at all. He currently is no longer taking any PPIs Admission and Anticipated Discharge Date Admission Date: October 04, 2022 Subjective Patient not really significantly improved, [facility] reviewed his CT scan he feels antibiotics are appropriate choice but there is some mediastinal lymphadenopathy and he would warrant outpatient pulmonary evaluation. The patient did see pulmonary medicine in [place] around the time of his CABG we will discuss with the family whether they wish to reengage with [facility] pulmonary medicine or institute new care in our local facility Physical Exam Physical Exam: Patient awake alert has a nonproductive cough Bilateral lung exam shows coarse rhonchi at the bases Card exam is regular Results & Data Results & Data Vital Signs (Past 12 Hours) Vital Signs Temp Pulse Pulse Resp BP Pulse Ox O2 Del Method 10/05/22 15:20 98.2 F 62 19 105/61 96 Nasal Cannula 10/05/22 09:39 75 17 122/64 94 Nasal Cannula 10/05/22 07:30 Nasal Cannula 10/05/22 07:35 98.8 F 70 14 140/70 93 Nasal Cannula O2 Flow Rate 10/05/22 15:20 2 10/05/22 09:39 2 10/05/22 07:30 2 10/05/22 07:35 Laboratory Results Reviewed CBC white count reduced Reviewed chemistry Reviewed bio fire PG Care Time/CCT Total # of Minutes Spent Total Time Spent with Patient: Total time spent is greater than 50% in coordination of care (as documented) at patient's floor/unit and/or counseling patient: Coding Level of Care Code 27044 SUB INP/OBS CARE 2/35MIN Diagnoses Pneumonia J18.9 Laterality: unspecified laterality Lung location: unspecified part of lung Pneumonia type: due to unspecified organism CAD (coronary atherosclerotic disease) I25.10 Diabetes mellitus type 2, uncontrolled E11.65 Chronic gastritis K29.50 (1) Pneumonia Laterality: unspecified laterality Lung location: unspecified part of lung Pneumonia type: due to unspecified organism Qualified Code(s): J18.9 - Pneumonia, unspecified organism
[2022-10-05] MEDS ORDERED: LANTUS PER UNIT CHARGE SQ SCH (21:00)
[2022-10-05] MEDS: ENOXAPARIN INJ 40 MG/0.4 ML SYR SQ SCH (21:10)
[2022-10-05] MEDS: FAMOTIDINE 20 MG TAB PO SCH (21:16)
[2022-10-06 06:50] LABS: BUN Creatinine Ratio 23.9 (10-20); Creatinine Clr Calc Pharmacy 78.2 ml/min; Est GFR (Non-African American) 84.6 ml/min
[2022-10-06 07:03] LABS: Hematocrit (blood only) 31.7 % (42.0-52.0); Hemoglobin 10.4 g/dl (14.0-18.0); Mean Corpuscular Hemoglobin 27.5 pg (25.0-34.0); Mean Corpuscular Hgb Conc 32.8 g/dL (32.0-36.0); Mean Corpuscular Volume 83.9 fL (80.0-100.0); Platelet Count 335 K/uL (130-400); RDW Coefficient of Variation 12.9 % (11.5-14.5); RDW Standard Deviation 39.1 fL (36.4-46.3); Red Blood Count 3.78 M/uL (4.70-6.10); White Blood Count 7.93 K/ul (4.8-10.8)
[2022-10-06] MEDS: guaiFENesin 600 MG TABCR PO SCH (08:52)
[2022-10-06] MEDS: FAMOTIDINE 20 MG TAB PO SCH (08:52)
[2022-10-06] MEDS: LOSARTAN POTASSIUM 25 MG TAB PO SCH (08:53)
[2022-10-06] MEDS: METOPROLOL SUCC 50MG EXT REL TAB PO SCH (08:53)
[2022-10-06] MEDS: ASPIRIN 81 MG ECTAB PO SCH (08:53)
[2022-10-06] MEDS: ATORVASTATIN 40 MG TAB PO SCH (08:53)
[2022-10-06] MEDS: INSULIN ASPART PER UNIT CHARGE SC SCH ×2 (08:58→12:48)
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
--- NOTE | 2022-10-06 22:17 | Electrocardiogram Report ---
Test Reason : Blood Pressure : / mmHG Vent. Rate : 079 BPM Atrial Rate : 079 BPM P-R Int : 212 ms QRS Dur : 086 ms QT Int : 370 ms P-R-T Axes : 118 170 100 degrees QTc Int : 424 ms Suspect arm lead reversal, interpretation assumes no reversal Sinus rhythm with 1st degree A-V block Lateral infarct , age undetermined Abnormal ECG No previous ECGs available Confirmed by Bairon Rodriguez ([id number]) on 10/06/2022 10:16:55 PM Referred By: Confirmed By:Bairon Rodriguez
--- NOTE | 2022-11-27 12:39 | Coding Query ---
A supporting diagnosis is required for the test/procedure performed on this patient in order for us to be reimbursed by the patient's insurance. Please provide a supporting diagnosis for the following test/procedure listed below next to the test name along with your signature. *If there is no additional diagnosis for this patient that would support the following test/procedure please document that below next to the test/procedure. Test(s)/Procedure(s) that require a supporting diagnosis: * FL VIDEO SWALLOW DIAGNOSIS: dysphagia Provider Signature: Date: Thank you Gem Madill [employer] Once completed, please kindly fax back to [phone] For questions please call [phone] [facility]
== END 2022-10-06 13:28 | disposition home or self-care (01) | DRG 194 ==
LOC: ED 13:25 → INTOOBSV 17:34 → EDINP 17:34 → 3W 19:49

== ENCOUNTER 2023-09-25 18:39 | Observation (INO) ==
--- NOTE | 2023-09-25 19:02 | ED Triage Note ---
Date of Service September 25, 2023 Provider in Triage Author: Kiesha Nagy History of Present Illness This patient was briefly evaluated while in triage. An abbreviated physical exam was performed. This patient is a 68-year-old Male who presents to the ED for evaluation of possible food poisoning. Had nausea, vomiting, and blood diarrhea. Now having mostly blood from the rectum without stool. He is on chemotherapy and is being evaluated for sarcoidosis in addition to his interstitial cystitis and lung cancer. On a baby aspirin, but not any other blood thinners. Physical Exam GENERAL: Non-toxic and in no acute distress. HEENT: Pupils equal. No obvious scleral icterus. HEART: Regular rate and rhythm. LUNGS: Clear to auscultation. No accessory muscle use. ABDOMEN: Soft, diffusely tender to palpation. No guarding or rigidity. NEURO: Alert and oriented. No obvious neurological deficits on quick neuro exam. Initial orders for labs and / or imaging were placed and patient was placed in the waiting area until a bed is available. Please see further documentation for the full ED course. MDM / Impression Impression Impression: Colitis
[2023-09-25] MEDS: SODIUM CHLORIDE 0.9% 500 ML IV STA (19:21)
[2023-09-25] MEDS: ONDANSETRON INJ 2 MG/ML 2 ML VIAL IV STA (19:21)
[2023-09-25 19:35] LABS: Basophils # (auto) 0.01 K/uL (0.00-0.20); Basophils % (auto) 0.2 %; Eosinophils # (auto) 0.01 K/uL (0.00-0.50); Eosinophils % (auto) 0.2 %; Hematocrit (blood only) 41.2 % (42.0-52.0); Hemoglobin 13.6 g/dl (14.0-18.0); Immature Granulocytes # (auto) 0.04 K/uL (0.01-0.20); Immature Granulocytes % (auto) 0.7 %; Lymphocytes # (auto) 1.81 K/uL (1.20-3.40); Lymphocytes % (auto) 33.1 %; Mean Corpuscular Hemoglobin 30.4 pg (25.0-34.0); Mean Platelet Volume 9.8 fL (9.4-12.4); Monocytes % (auto) 5.5 %; Neutrophils % (auto) 60.3 %; Platelet Count 285 K/uL (130-400); RDW Coefficient of Variation 14.8 % (11.5-14.5); RDW Standard Deviation 50.2 fL (36.4-46.3); Red Blood Count 4.48 M/uL (4.70-6.10); White Blood Count 5.47 K/ul (4.8-10.8)
[2023-09-25 19:51] LABS: Anion Gap 8 (3-11); BUN Creatinine Ratio 21.8 (10-20); Blood Urea Nitrogen 22 mg/dl (6-23); Calcium 9.7 mg/dl (8.6-10.3); Carbon Dioxide 28 mmol/L (21-32); Chloride 99 mmol/L (98-107); Creatinine Clr Calc Pharmacy 69.4 ml/min; Est GFR (African American) 86.9 ml/min; Glucose 199 mg/dl (70-99(Fasting)); Potassium 4.4 mmol/L (3.5-5.1); Sodium 135 mmol/L (136-145)
[2023-09-25 19:58] LABS: Alanine Aminotransferase 21 U/L (7-52); Albumin Globulin Ratio 1.2 (0.9-2); Albumin Level 4.2 gm/dl (3.4-5.0); Alkaline Phosphatase 81 U/L (34-104); Aspartate Aminotransferase 22 U/L (13-39); Bilirubin,Total 0.7 mg/dl (0.2-1.0); Globulin 3.5 gm/dl (2.5-4.0); Lipase < 3 U/L (11-82); Magnesium 1.6 mg/dl (1.7-2.4); Total Protein 7.7 gm/dl (6.0-8.3)
[2023-09-25 20:01] LABS: Partial Thromboplastin Time 28 Seconds (21-31); Prothrombin Time 10.4 Seconds (9.0-12.0)
--- NOTE | 2023-09-25 20:01 | Emergency Department Note ---
Impression & Plan Colitis ADMIT ED Provider Note HPI: History obtained from patient The patient is a 68-year-old gentleman with history of metastatic adenocarcinoma of the lung, currently on chemotherapy, presents the emergency department with a chief complaint of diarrhea and abdominal cramping. Patient states that his symptoms began this morning, patient states he ate seafood at a [employer] restaurant last night and he is concerned that he might of contracted food poisoning. Patient states he has had multiple episodes of dry heaving and diarrhea today. Patient states his diarrhea initially was watery and then became bloody this afternoon. On arrival here to the ED the patient is hemodynamically stable, he otherwise appears to be in no acute distress on my initial assessment. ROS: - Per HPI Differential Diagnosis: Viral gastroenteritis, ischemic colitis, small bowel obstruction, inflammatory bowel disease, amongst other potential pathologies. *Outpatient medications and allergy history reviewed. 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 Lab work shows no leukocytosis, hemoglobin is stable at 13.6, platelet count is normal, CMP does not show any critical findings, lactic acid is slightly elevated at 2.3, magnesium is slightly low at 1.6 which was ordered for IV repletion. Troponin is negative. EKG does not show any evidence of any acute ischemic changes. Urinalysis was obtained and is nitrite positive however leukocyte esterase negative without any pyuria, will send for culture. CT imaging of the abdomen pelvis was obtained that shows a nonspecific colitis, possibly ischemic. Patient did have an episode of blood per rectum that was low-volume here in the ED. Given the patient's comorbidities including being actively on chemotherapy for adenocarcinoma of the lung in addition to concern for infectious versus inflammatory versus possibly ischemic colitis on CT imaging, he will be admitted for further care. Blood cultures were drawn and the patient was given a dose of IV Zosyn here in the ED. Case was discussed with the on-call hospitalist, Dr. Araujo, and the patient was placed for admission in stable condition. Consultants/Discussions held with other healthcare providers: -Hospitalist, Dr. Araujo Disposition discussion held by myself with: -Patient Diagnosis: 1. Abdominal pain, acute 2. Colitis, acute, nonspecific 3. Lower GI bleed, acute 4. Ketonuria, acute 5. Hypomagnesemia, acute 6. Nausea, acute 7. Diarrhea, acute Disposition: Admission Riky Hale DO Emergency Medicine Past Med/Surg History Problem List (Updated 09/25/23 @ 23:38 by Riky Hale DO) Colitis (Acute) Type 2 diabetes mellitus treated with insulin Primary cancer of left upper lobe of lung (Chronic 11/14/22) Metastatic adenocarcinoma Interstitial lung disease Pulmonary nodule Upper airway cough syndrome Smoking history COPD with emphysema Anemia Abnormal CT lung screening Hypoxia (Acute) Pneumonia (Acute) Hypoglycemia (Acute) Dyspnea CAD (coronary atherosclerotic disease) Right-sided chest pain Pleuritic chest pain Osteoarthritis of right knee Medicare annual wellness visit, subsequent Prostate cancer screening Musculoskeletal chest pain CAD, multiple vessel UTI (urinary tract infection) Asymptomatic microscopic hematuria HTN (hypertension) S/P coronary artery stent placement Postoperative anemia Hx of CABG Chest discomfort Cough History of colon polyps Encounter for pre-operative examination Smokes 1/2 pack per day (Acute) Right shoulder pain (Acute) Nausea and vomiting (Acute) Lyme disease (Acute) Hyperlipidemia (Acute) Esophagitis (Acute) Erectile dysfunction (Acute) Elevated antinuclear antibody (POORNIMA) level (Acute) Diabetes mellitus type 2, uncontrolled (Acute) Constipation (Acute) Chronic gastritis (Acute) CAD in [place] artery (Acute) Benign essential hypertension (Acute) Medicare annual wellness visit, subsequent Carpal tunnel syndrome Dupuytren contracture Colon cancer screening Prostate cancer screening Dental abscess Pulmonary interstitial fibrosis (Acute) Tubular adenoma of colon (Acute) Medical History History of anesthesia reaction GERD (gastroesophageal reflux disease) DM type 2 (diabetes mellitus, type 2) SALAMATOF (hard of hearing) CAD (coronary artery disease) History of myocardial infarction HLD (hyperlipidemia) Surgical History History of bronchoscopy (11/08/22) History of surgery History of carpal tunnel surgery of left wrist History of carpal tunnel surgery of right wrist History of esophagogastroduodenoscopy (EGD) History of colonoscopy History of cardiac catheterization History of ear surgery History of hernia repair History of tonsillectomy History of appendectomy History of decompression of median nerve History of knee surgery Family History Mother Dementia Father Cancer Sister No problems noted. Son No problems noted. Daughter No problems noted. Daughter No problems noted. 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: No Beliefs That Will Affect Care: None marital status: Current Living Situation: Spouse current occupational status: 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 How many Children do You have: 3 Feels Safe at Home: Yes Childhood Exposure to Second-Hand Smoke: Yes Diet: regular caffeine: Yes (tea, coffee ) during the past year weight has: decreased > 10 lbs Dental Care, Regularly: Yes Seatbelt Use: sometimes Assistive Devices: Glasses Allergies Allergies Allergy/AdvReac Type Severity Reaction Status Date / Time No Known Drug Allergies Allergy Unknown Verified 09/17/23 08:20 Home Meds Home Medications Medication Instructions Recorded Confirmed aspirin 81 mg tablet,delayed 81 mg PO QAM 08/12/20 09/25/23 release zinc 50 mg tablet 50 mg PO DAILY 06/01/21 09/25/23 multivitamin 1 tab PO DAILY 11/02/22 09/25/23 cholecalciferol (vitamin D3) 25 1,000 unit PO DAILY 03/12/23 09/25/23 mcg (1,000 unit) tablet (Vitamin D3) turmeric 100 mg-tank 150 1 cap PO DAILY 03/12/23 09/25/23 mg-olive 50 mg-oreg 150 mg-capryl capsule folic acid 1 mg tablet 1 mg PO UD 09/25/23 09/25/23 glimepiride 4 mg tablet 4 mg PO BIDM 09/25/23 09/25/23 olanzapine 2.5 mg tablet 2.5 mg PO UD 09/25/23 09/25/23 ondansetron HCl 8 mg tablet 8 mg PO Q8 PRN Nausea And Vomiting 09/25/23 09/25/23 pantoprazole 40 mg tablet,delayed 40 mg PO DAILY 09/25/23 09/25/23 release prednisone 10 mg tablet 10 mg PO DAILY 09/25/23 09/25/23 sitagliptin phosphate 100 mg 100 mg PO QDB 09/25/23 09/25/23 tablet (Januvia) triamcinolone acetonide 0.1 % 1 applic topical BID PRN Skin 09/25/23 09/25/23 topical cream Irritation Previous Rx's Medication Instructions Recorded albuterol sulfate 90 mcg/actuation 2 puff inhalation Q6H PRN 10/12/22 aerosol inhaler shortness of breath or wheezing #8.5 grams insulin glargine 100 unit/mL (3 28 - 38 unit (0.28 - 0.38 mL) 10/22/22 mL) subcutaneous pen (Basaglar subcut QPM #15 mL KwikPen U-100 Insulin) atorvastatin 80 mg tablet 80 mg PO QAM #90 tabs 01/24/23 benzonatate 200 mg capsule 200 mg PO TID PRN cough #30 caps 02/11/23 metformin 1,000 mg tablet 1,000 mg PO BID #180 tabs 02/11/23 metoprolol succinate 100 mg 100 mg PO DAILY #90 tabs 07/22/23 tablet,extended release 24 hr losartan 25 mg tablet 25 mg PO DAILY #90 tabs 07/29/23 Results & Data (ED) Vital Signs Vital Signs - 24 hr 09/25/23 18:59 05/29/24 19:21 09/25/23 19:52 Temperature 36.7 C Temperature Source Temporal Artery Scan Pulse Rate 108 H 84 Pulse Rate [Apical] Respiratory Rate 18 Respiratory Effort / Characteristics Non-Labored Respiratory Depth Normal Blood Pressure 119/78 Blood Pressure [Right Arm] Blood Pressure Mean 91 Blood Pressure Mean [Right Arm] Pulse Oximetry 96 96 Oxygen Delivery Method Room Air Room Air Sepsis Recent Fever Within 48 Hours No Sepsis New/Unexplained Change in Mental Status No Sepsis Action Taken by Nursing No Action Required 09/25/23 20:01 09/25/23 20:52 09/25/23 22:23 Temperature Temperature Source Pulse Rate 82 Pulse Rate [Apical] 83 Respiratory Rate 22 19 Respiratory Effort / Characteristics Respiratory Depth Blood Pressure 169/87 H Blood Pressure [Right Arm] 133/73 Blood Pressure Mean 111 Blood Pressure Mean [Right Arm] 93 Pulse Oximetry 95 Oxygen Delivery Method Sepsis Recent Fever Within 48 Hours Sepsis New/Unexplained Change in Mental Status Sepsis Action Taken by Nursing Laboratory Data 09/25/23 19:17 09/25/23 19:17 Lab Results 09/25/23 09/25/23 09/25/23 Range/Units 19:17 19:18 21:17 WBC 5.47 (4.8-10.8) K/ul RBC 4.48 L (4.70-6.10) M/uL Hgb 13.6 L (14.0-18.0) g/dl Hct 41.2 L (42.0-52.0) % MCV 92.0 (80.0-100.0) fL MCH 30.4 (25.0-34.0) pg MCHC 33.0 (32.0-36.0) g/dL RDW Std Deviation 50.2 H (36.4-46.3) fL RDW Coeff of Megan 14.8 H (11.5-14.5) % Plt Count 285 (130-400) K/uL MPV 9.8 (9.4-12.4) fL Immature Gran % (Auto) 0.7 % Neut % (Auto) 60.3 % Lymph % (Auto) 33.1 % [place] % (Auto) 5.5 % Eos % (Auto) 0.2 % Baso % (Auto) 0.2 % Neut # (Auto) 3.30 (1.40-6.50) K/uL Lymph # (Auto) 1.81 (1.20-3.40) K/uL [place] # (Auto) 0.30 (0.11-0.59) K/uL Eos # (Auto) 0.01 (0.00-0.50) K/uL Baso # (Auto) 0.01 (0.00-0.20) K/uL Immature Gran # (Auto) 0.04 (0.01-0.20) K/uL PT 10.4 (9.0-12.0) Seconds INR 1.0 (0.9-1.1) APTT 28 (21-31) Seconds PTT Ratio 1.0 Sodium 135 L (136-145) mmol/L Potassium 4.4 (3.5-5.1) mmol/L Chloride 99 (98-107) mmol/L Carbon Dioxide 28 (21-32) mmol/L Anion Gap 8 (3-11) BUN 22 (6-23) mg/dl Creatinine 1.01 (0.6-1.4) mg/dl Est Cr Clr Drug Dosing 69.4 ml/min Est GFR ( Amer) 86.9 ml/min Est GFR (Non-Af Amer) 75.0 ml/min BUN/Creatinine Ratio 21.8 H (10-20) Glucose 199 H (70-99(Fasting)) mg/dl POC Glucose (70-99) mg/dl Lactate 2.3 H* 1.6 (0.4-2.0) mmol/L Calcium 9.7 (8.6-10.3) mg/dl Magnesium 1.6 L (1.7-2.4) mg/dl Total Bilirubin 0.7 (0.2-1.0) mg/dl AST 22 (13-39) U/L ALT 21 (7-52) U/L Alkaline Phosphatase 81 (34-104) U/L Troponin I High Sens 14.0 (0-20) pg/ml Total Protein 7.7 (6.0-8.3) gm/dl Albumin 4.2 (3.4-5.0) gm/dl Globulin 3.5 (2.5-4.0) gm/dl Albumin/Globulin Ratio 1.2 (0.9-2) Lipase < 3 L (11-82) U/L Urine Color Urine Appearance (Clear) Urine pH (4.5-7.5) Ur Specific [place] (1.000-1.030) Urine Protein (Negative) Urine Glucose (UA) (Negative) Urine Ketones (Negative) Urine Blood (Negative) Urine Nitrite (Negative) Urine Bilirubin (Negative) Urine Urobilinogen (Negative) Ur Leukocyte Esterase (Negative) Urine WBC (Auto) (0-5) /hpf Urine RBC (Auto) (0-2) /hpf U Hyaline Cast (Auto) (0-2) /lpf U Epithel Cells (Auto) (0-2) /hpf Urine Bacteria (Auto) (None Seen) Blood Type O Positive Antibody Screen NEGATIVE 09/25/23 09/25/23 Range/Units 23:14 Unknown WBC (4.8-10.8) K/ul RBC (4.70-6.10) M/uL Hgb (14.0-18.0) g/dl Hct (42.0-52.0) % MCV (80.0-100.0) fL MCH (25.0-34.0) pg MCHC (32.0-36.0) g/dL RDW Std Deviation (36.4-46.3) fL RDW Coeff of Megan (11.5-14.5) % Plt Count (130-400) K/uL MPV (9.4-12.4) fL Immature Gran % (Auto) % Neut % (Auto) % Lymph % (Auto) % [place] % (Auto) % Eos % (Auto) % Baso % (Auto) % Neut # (Auto) (1.40-6.50) K/uL Lymph # (Auto) (1.20-3.40) K/uL [place] # (Auto) (0.11-0.59) K/uL Eos # (Auto) (0.00-0.50) K/uL Baso # (Auto) (0.00-0.20) K/uL Immature Gran # (Auto) (0.01-0.20) K/uL PT (9.0-12.0) Seconds INR (0.9-1.1) APTT (21-31) Seconds PTT Ratio Sodium (136-145) mmol/L Potassium (3.5-5.1) mmol/L Chloride (98-107) mmol/L Carbon Dioxide (21-32) mmol/L Anion Gap (3-11) BUN (6-23) mg/dl Creatinine (0.6-1.4) mg/dl Est Cr Clr Drug Dosing ml/min Est GFR ( Amer) ml/min Est GFR (Non-Af Amer) ml/min BUN/Creatinine Ratio (10-20) Glucose (70-99(Fasting)) mg/dl POC Glucose 176 H (70-99) mg/dl Lactate (0.4-2.0) mmol/L Calcium (8.6-10.3) mg/dl Magnesium (1.7-2.4) mg/dl Total Bilirubin (0.2-1.0) mg/dl AST (13-39) U/L ALT (7-52) U/L Alkaline Phosphatase (34-104) U/L Troponin I High Sens (0-20) pg/ml Total Protein (6.0-8.3) gm/dl Albumin (3.4-5.0) gm/dl Globulin (2.5-4.0) gm/dl Albumin/Globulin Ratio (0.9-2) Lipase (11-82) U/L Urine Color Yellow Urine Appearance Clear (Clear) Urine pH 5.5 (4.5-7.5) Ur Specific [place] 1.027 (1.000-1.030) Urine Protein 3+ H (Negative) Urine Glucose (UA) Trace H (Negative) Urine Ketones 1+ H (Negative) Urine Blood Trace H (Negative) Urine Nitrite Positive A (Negative) Urine Bilirubin Negative (Negative) Urine Urobilinogen Negative (Negative) Ur Leukocyte Esterase Negative (Negative) Urine WBC (Auto) 0-5 (0-5) /hpf Urine RBC (Auto) 0-2 (0-2) /hpf U Hyaline Cast (Auto) 3-5 H (0-2) /lpf U Epithel Cells (Auto) 0-2 (0-2) /hpf Urine Bacteria (Auto) 4+ H (None Seen) Blood Type Antibody Screen Administered Medications Discontinued Medications Sodium Chloride (Nss) 500 mls @ 999 mls/hr IV .Q31M STA Stop: 09/25/23 19:32 Last Infusion: 09/25/23 20:39 Dose: Infused Documented By: Admin: 09/25/23 19:21 Dose: 999 mls/hr Documented By: ISMAEL Magnesium Sulfate/Dextrose (Magnesium Sulfate / D5w) 1 gm in 100 mls @ 100 mls/hr IV NOW STA Stop: 09/25/23 23:12 Last Admin: 09/25/23 22:25 Dose: 100 mls/hr Documented By: CECILIA Ioversol (Optiray 320 100ml) 90 ml IV ONCE ONE Stop: 09/25/23 20:46 Last Admin: 09/25/23 20:45 Dose: 90 ml Documented By: YO Ondansetron HCl (Ondansetron Inj 2 Mg/Ml 2 Ml Vial) 4 mg IV NOW STA Stop: 09/25/23 19:03 Last Admin: 09/25/23 19:21 Dose: 4 mg Documented By: ISMAEL Imaging Data Radiologist's Impression: Abdomen/Pelvis CT 09/25/23 19:03 Exam(s): CT ABDOMEN + PELVIS With Contrast IV Amt: 90 ml optiray 320 EXAM: CT Abdomen and Pelvis With Intravenous Contrast CLINICAL HISTORY: Reason for exam: Abdominal pain, diarrhea, rectal bleeding. TECHNIQUE: Axial computed tomography images of the abdomen and pelvis with intravenous contrast. CTDI is 11.73 mGy and DLP is 609.31 mGy-cm. Automated exposure control was utilized for the study. A dose lowering technique was utilized adhering to the principles of ALARA. CONTRAST: Patient received 90 ml optiray 320 of IV contrast COMPARISON: 03/11/2023 FINDINGS: Lung bases: Lung bases demonstrate chronic fibrosis with cystic changes and possible bronchiectasis. No consolidation. ABDOMEN: Liver: Unremarkable. No mass. Gallbladder and bile ducts: Unremarkable. No calcified stones. No ductal dilation. Pancreas: Unremarkable. No mass. No ductal dilation. Spleen: Unremarkable. No splenomegaly. Adrenals: 1.4 cm right adrenal nodule stable from prior exam. Kidneys and ureters: 2 cm simple cyst arising off the mid right kidney. No further workup is required. No hydronephrosis. Stomach and bowel: Severe wall thickening left colon and sigmoid colons with surrounding inflammation consistent with either a ischemic or infectious colitis. No obstruction. PELVIS: Appendix: No findings to suggest acute appendicitis. Bladder: Unremarkable. No mass. Reproductive: Unremarkable as visualized. ABDOMEN and PELVIS: Intraperitoneal space: Unremarkable. No free air. No significant fluid collection. Bones/joints: No acute fracture. No dislocation. Soft tissues: Unremarkable. Vasculature: Unremarkable. No abdominal aortic aneurysm. Lymph nodes: Unremarkable. No enlarged lymph nodes. IMPRESSION: 1. Severe wall thickening left colon and sigmoid colons with surrounding inflammation consistent with either a ischemic or infectious colitis. 2. Lung bases demonstrate chronic fibrosis with cystic changes and possible bronchiectasis. Electronically signed by: Perico Hu M.D. 09/25/23 21:36 PM Discharge Plan Visit Data Chief Complaint: Abdominal Pain Stated Complaint: FOOD POINSONING ED Provider: Riky Hale Discharge Problem: Colitis Forms Stand Alone Forms: [facility] [employer] Prescriptions Prescriptions: No Action [id number] 100 mg-150 mg- 50 mg-150 mg capsule 1 cap PO DAILY insulin glargine [Basaglar KwikPen U-100 Insulin] 100 unit/mL (3 mL) insulin pen 28 - 38 unit subcut QPM Qty: 15 11RF Rx Instructions: 0 units if <150 atorvastatin 80 mg tablet 80 mg PO QAM Qty: 90 3RF benzonatate 200 mg capsule 200 mg PO TID PRN (Reason: cough) Qty: 30 5RF metformin 1,000 mg tablet 1,000 mg PO BID Qty: 180 3RF metoprolol succinate 100 mg tablet extended release 24 hr 100 mg PO DAILY Qty: 90 3RF losartan 25 mg tablet 25 mg PO DAILY Qty: 90 3RF Rx Instructions: for diabetic kidney protection albuterol sulfate 90 mcg/actuation HFA aerosol inhaler 2 puff inhalation Q6H PRN (Reason: shortness of breath or wheezing) Qty: 8.5 3RF zinc 50 mg tablet 50 mg PO DAILY Rx Instructions: gummy aspirin 81 mg tablet,delayed release (DR/EC) 81 mg PO QAM multivitamin Tablet 1 tab PO DAILY cholecalciferol (vitamin D3) [Vitamin D3] 25 mcg (1,000 unit) tablet 1,000 unit PO DAILY ondansetron HCl 8 mg tablet 8 mg PO Q8 PRN (Reason: Nausea And Vomiting) olanzapine 2.5 mg tablet 2.5 mg PO UD Rx Instructions: take 1 tablet at bedtime for 4 days starting day 1 of chemotherapy for nausea glimepiride 4 mg tablet 4 mg PO BIDM Rx Instructions: meals prednisone 10 mg tablet 10 mg PO DAILY triamcinolone acetonide 0.1 % cream 1 applic TOPICAL BID PRN (Reason: Skin Irritation) pantoprazole 40 mg tablet,delayed release (DR/EC) 40 mg PO DAILY folic acid 1 mg tablet 1 mg PO UD Januvia 100 mg tablet 100 mg PO QDB Referrals Referrals: Teo Ding MD [Primary Care Provider] -
[2023-09-25] MEDS: OPTIRAY 320 100ml IV ONE (20:45)
[2023-09-25 21:05] LABS: Appearance Urine Clear (Clear); Bacteria Urine Automated 4+ (None Seen); Bilirubin Urine Negative (Negative); Blood Urine Trace (Negative); Color Urine Yellow; Epithelial Cell Urine Auto 0-2 /hpf (0-2); Glucose Urine UA Trace (Negative); Ketones Urine 1+ (Negative); Leukocyte Esterase Urine Negative (Negative); Nitrite Urine Positive (Negative); Protein Urine 3+ (Negative); RBC Urine Automated 0-2 /hpf (0-2); Specific Gravity Urine 1.027 (1.000-1.030); Urobilinogen Urine Negative (Negative); WBC Urine Automated 0-5 /hpf (0-5); pH Urine 5.5 (4.5-7.5)
--- NOTE | 2023-09-25 21:37 | CT Scan Report ---
Exam(s): CT ABDOMEN + PELVIS With Contrast IV Amt: 90 ml optiray 320 EXAM: CT Abdomen and Pelvis With Intravenous Contrast CLINICAL HISTORY: Reason for exam: Abdominal pain, diarrhea, rectal bleeding. TECHNIQUE: Axial computed tomography images of the abdomen and pelvis with intravenous contrast. CTDI is 11.73 mGy and DLP is 609.31 mGy-cm. Automated exposure control was utilized for the study. A dose lowering technique was utilized adhering to the principles of ALARA. CONTRAST: Patient received 90 ml optiray 320 of IV contrast COMPARISON: 03/11/2023 FINDINGS: Lung bases: Lung bases demonstrate chronic fibrosis with cystic changes and possible bronchiectasis. No consolidation. ABDOMEN: Liver: Unremarkable. No mass. Gallbladder and bile ducts: Unremarkable. No calcified stones. No ductal dilation. Pancreas: Unremarkable. No mass. No ductal dilation. Spleen: Unremarkable. No splenomegaly. Adrenals: 1.4 cm right adrenal nodule stable from prior exam. Kidneys and ureters: 2 cm simple cyst arising off the mid right kidney. No further workup is required. No hydronephrosis. Stomach and bowel: Severe wall thickening left colon and sigmoid colons with surrounding inflammation consistent with either a ischemic or infectious colitis. No obstruction. PELVIS: Appendix: No findings to suggest acute appendicitis. Bladder: Unremarkable. No mass. Reproductive: Unremarkable as visualized. ABDOMEN and PELVIS: Intraperitoneal space: Unremarkable. No free air. No significant fluid collection. Bones/joints: No acute fracture. No dislocation. Soft tissues: Unremarkable. Vasculature: Unremarkable. No abdominal aortic aneurysm. Lymph nodes: Unremarkable. No enlarged lymph nodes. IMPRESSION: 1. Severe wall thickening left colon and sigmoid colons with surrounding inflammation consistent with either a ischemic or infectious colitis. 2. Lung bases demonstrate chronic fibrosis with cystic changes and possible bronchiectasis. Electronically signed by: Perico Hu M.D. 09/25/23 21:36 PM
[2023-09-25] MEDS: MAGNESIUM SULFATE / D5W 1 GM/100 ML BAG IV STA ×2 (22:25→23:57)
--- NOTE | 2023-09-25 23:14 | History & Physical Report ---
Date of Service September 25, 2023 Assessment & Plan (1) Colitis: (2) Type 2 diabetes mellitus treated with insulin: (3) Primary cancer of left upper lobe of lung: (4) Metastatic adenocarcinoma: (5) Interstitial lung disease: (6) CAD, multiple vessel: (7) Asymptomatic microscopic hematuria: (8) Pulmonary interstitial fibrosis: (9) Diabetes mellitus type 2, uncontrolled: (10) Hx of CABG: (11) UTI (urinary tract infection): (12) Food poisoning: Plan Left and sigmoid colitis/food poisoning- Stool PCR and C. difficile testing ordered Given Zosyn 4.5 g IV, NSS 500 mill bolus, and Zofran 4 mg IV from the ED Symptoms began 12 to 18 hours after eating shrimp and clams at a [place] restaurant Follow studies as noted above Would like to hold on antibiotics GI infection, however, patient has a significant UTI which will need treated Primary GI symptoms have been improving Will consult gastroenterology if bleeding recurs Avoid NSAIDs and anticoagulants Pantoprazole 40 mg IV daily Urinary tract infection/presumptive prostatitis- Follow urine culture and sensitivity Urinalysis looks significantly abnormal, it is likely a prostatitis secondary to severe colitis CAD/hypertension/history of coronary artery stent placement Holding aspirin due to GI bleeding Hold losartan due to borderline blood pressure For now, split metoprolol succinate dosing from 100 mg p.o. daily to 50 mg p.o. twice daily, beginning in a.m. Diabetes mellitus- Hold glimepiride, metformin and Januvia Change Basaglar 28-38 units to glargine 10 units subcu at bedtime with NovoLog SSI coverage Check hemoglobin A1c Pulmonary interstitial fibrosis/COPD emphysema/left upper lobe lung cancer on chemotherapy Temporarily holding prednisone Continue usual inhalers History of Present Illness Chief Complaint: The patient presents to the emergency department due to complaint of diarrhea, abdominal cramping, and dry heaving that began today, about 18 hours after eating shrimp and clams at a [place] restaurant. He reports that his diarrhea was initially loose and watery, and now has noted that it is bloody. He presently is undergoing chemotherapy treatment for metastatic adenocarcinoma of the lung Primary Care Provider: Teo Ding MD The patient is a 68-year-old male medical history with a past medical history including primary cancer of left upper lobe of lung, diabetes mellitus type 2 treated with insulin, COPD, multivessel CAD, status post CABG, hypertension, and pulmonary cystic fibrosis. He presents to the emergency department in the immunocompromised state on chemotherapy, with diarrhea concerning for food poisoning as noted above. Allergies Allergy/AdvReac Type Severity Reaction Status Date / Time No Known Drug Allergies Allergy Unknown Verified 09/17/23 08:20 Home Medications Medication Instructions Recorded Confirmed Type aspirin 81 mg tablet,delayed 81 mg PO QAM 08/12/20 09/25/23 History release zinc 50 mg tablet 50 mg PO DAILY 06/01/21 09/25/23 History albuterol sulfate 90 mcg/actuation 2 puff inhalation Q6H PRN 10/12/22 09/25/23 Rx aerosol inhaler shortness of breath or wheezing #8.5 grams insulin glargine 100 unit/mL (3 28 - 38 unit (0.28 - 0.38 mL) 10/22/22 09/25/23 Rx mL) subcutaneous pen (Basaglar subcut QPM #15 mL KwikPen U-100 Insulin) multivitamin 1 tab PO DAILY 11/02/22 09/25/23 History atorvastatin 80 mg tablet 80 mg PO QAM #90 tabs 01/24/23 09/25/23 Rx benzonatate 200 mg capsule 200 mg PO TID PRN cough #30 caps 02/11/23 09/25/23 Rx metformin 1,000 mg tablet 1,000 mg PO BID #180 tabs 02/11/23 09/25/23 Rx cholecalciferol (vitamin D3) 25 1,000 unit PO DAILY 03/12/23 09/25/23 History mcg (1,000 unit) tablet (Vitamin D3) turmeric 100 mg-tank 150 1 cap PO DAILY 03/12/23 09/25/23 History mg-olive 50 mg-oreg 150 mg-capryl capsule metoprolol succinate 100 mg 100 mg PO DAILY #90 tabs 07/22/23 09/25/23 Rx tablet,extended release 24 hr losartan 25 mg tablet 25 mg PO DAILY #90 tabs 07/29/23 09/25/23 Rx folic acid 1 mg tablet 1 mg PO UD 09/25/23 09/25/23 History glimepiride 4 mg tablet 4 mg PO BIDM 09/25/23 09/25/23 History olanzapine 2.5 mg tablet 2.5 mg PO UD 09/25/23 09/25/23 History ondansetron HCl 8 mg tablet 8 mg PO Q8 PRN Nausea And Vomiting 09/25/23 09/25/23 History pantoprazole 40 mg tablet,delayed 40 mg PO DAILY 09/25/23 09/25/23 History release prednisone 10 mg tablet 10 mg PO DAILY 09/25/23 09/25/23 History sitagliptin phosphate 100 mg 100 mg PO QDB 09/25/23 09/25/23 History tablet (Januvia) triamcinolone acetonide 0.1 % 1 applic topical BID PRN Skin 09/25/23 09/25/23 History topical cream Irritation Past Med/Surg History Problem List (Updated 09/26/23 @ 01:26 by Abran Araujo MD) Food poisoning Colitis (Acute) Type 2 diabetes mellitus treated with insulin Primary cancer of left upper lobe of lung (Chronic 11/14/22) Metastatic adenocarcinoma Interstitial lung disease Pulmonary nodule Upper airway cough syndrome Smoking history COPD with emphysema Anemia Abnormal CT lung screening Hypoxia (Acute) Pneumonia (Acute) Hypoglycemia (Acute) Dyspnea CAD (coronary atherosclerotic disease) Right-sided chest pain Pleuritic chest pain Osteoarthritis of right knee Medicare annual wellness visit, subsequent Prostate cancer screening Musculoskeletal chest pain CAD, multiple vessel UTI (urinary tract infection) Asymptomatic microscopic hematuria HTN (hypertension) S/P coronary artery stent placement Postoperative anemia Hx of CABG Chest discomfort Cough History of colon polyps Encounter for pre-operative examination Smokes 1/2 pack per day (Acute) Right shoulder pain (Acute) Nausea and vomiting (Acute) Lyme disease (Acute) Hyperlipidemia (Acute) Esophagitis (Acute) Erectile dysfunction (Acute) Elevated antinuclear antibody (POORNIMA) level (Acute) Diabetes mellitus type 2, uncontrolled (Acute) Constipation (Acute) Chronic gastritis (Acute) CAD in grindstone artery (Acute) Benign essential hypertension (Acute) Medicare annual wellness visit, subsequent Carpal tunnel syndrome Dupuytren contracture Colon cancer screening Prostate cancer screening Dental abscess Pulmonary interstitial fibrosis (Acute) Tubular adenoma of colon (Acute) Medical History History of anesthesia reaction GERD (gastroesophageal reflux disease) DM type 2 (diabetes mellitus, type 2) [place] (hard of hearing) CAD (coronary artery disease) History of myocardial infarction HLD (hyperlipidemia) Surgical History History of bronchoscopy (11/08/22) History of surgery History of carpal tunnel surgery of left wrist History of carpal tunnel surgery of right wrist History of esophagogastroduodenoscopy (EGD) History of colonoscopy History of cardiac catheterization History of ear surgery History of hernia repair History of tonsillectomy History of appendectomy History of decompression of median nerve History of knee surgery Family History Mother Dementia Father Cancer Sister No problems noted. Son No problems noted. Daughter No problems noted. Daughter No problems noted. Other No family history of adverse response to anesthesia Denies family history of Ovarian cancer Prostate cancer Myocardial infarction Breast cancer Colorectal cancer Social History Smoking Status: Never smoker Tobacco Type: Cigarettes Age Started Using Tobacco: 20; Age Quit Using Tobacco: 65; packs per day: 1; Second Hand Exposure: No; Do You Dip or Chew Tobacco: No; Hx Alcohol Use: Yes Alcohol type: beer Hx Substance Use: No Preferred Language: Ecuadorean Communication Ability: Effective Visual Impairment: Limited Hearing Ability: Hard of Hearing Sales Operations Required: No Beliefs That Will Affect Care: None marital status: Current Living Situation: Spouse 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 occupational status: 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 How many Children do You have: 3 Feels Safe at Home: Yes Childhood Exposure to Second-Hand Smoke: Yes Diet: regular caffeine: Yes (tea, coffee ) during the past year weight has: decreased > 10 lbs Dental Care, Regularly: Yes Seatbelt Use: sometimes Assistive Devices: Glasses Review of Systems Review of Systems: The patient denies chest pain, palpitations, shortness of breath, dyspnea on exertion, cough, lower extremity swelling, sore throat, fevers, chills, sweats, blood in urine, dysuria, urinary frequency or urgency, lightheadedness, memory loss, loss of consciousness, rash, imbalance, focal weakness, numbness or tingling in arms or legs, generalized arthralgias or myalgias, back or neck pain, or night sweats. The review of systems is otherwise negative other than for that already noted above, and at least 10 systems have been reviewed. Physical Exam Physical Exam: The patient is awake, alert and oriented 3, well developed and well nourished, normocephalic and atraumatic, lying in bed and in no acute distress. HEENT--PERRL, EOMI, mucous membranes and oropharynx dry. Neck--supple. No JVD. No bruits. Thyroid normal, trachea midline, no adenopathy. Heart--normal S1 and S2. No murmurs, rubs or gallops. Lungs--clear bilaterally, no respiratory distress, no accessory muscle use. Abdomen--hyperactive bowel sounds and soft. Nontender. Nondistended. Mildly tympanitic. No hernias or masses, no organomegaly. Extremities--no cyanosis or clubbing. No edema. There are good distal pulses b/l. Dermatologic--normal skin turgor, normal color, no abnormal lymph nodes, no rash. Neurologic--cranial nerves II through XII grossly intact. Rheumatologic--normal range of motion. Psychiatric--normal affect. Results & Data Results & Data Vital Signs (Past 12 Hours) Vital Signs Temp Pulse Pulse Resp BP BP Pulse Ox 09/25/23 22:23 83 19 133/73 95 09/25/23 20:52 82 22 09/25/23 20:01 169/87 H 09/25/23 19:52 84 09/25/23 19:21 96 09/25/23 18:59 36.7 C 108 H 18 119/78 96 O2 Del Method 09/25/23 22:23 09/25/23 20:52 09/25/23 20:01 09/25/23 19:52 09/25/23 19:21 Room Air 09/25/23 18:59 Room Air Laboratory Results Laboratory Results WBC 5.47 K/ul (4.8-10.8) 09/25/23 19:17 RBC 4.48 M/uL (4.70-6.10) L 09/25/23 19:17 Hgb 13.6 g/dl (14.0-18.0) L 09/25/23 19:17 Hct 41.2 % (42.0-52.0) L 09/25/23 19:17 MCV 92.0 fL (80.0-100.0) 09/25/23 19:17 MCH 30.4 pg (25.0-34.0) 09/25/23 19:17 MCHC 33.0 g/dL (32.0-36.0) 09/25/23 19:17 RDW Std Deviation 50.2 fL (36.4-46.3) H 09/25/23 19:17 RDW Coeff of Megan 14.8 % (11.5-14.5) H 09/25/23 19:17 Plt Count 285 K/uL (130-400) 09/25/23 19:17 MPV 9.8 fL (9.4-12.4) 09/25/23 19:17 Immature Gran % (Auto) 0.7 % 09/25/23 19:17 Neut % (Auto) 60.3 % 09/25/23 19:17 Lymph % (Auto) 33.1 % 09/25/23 19:17 [place] % (Auto) 5.5 % 09/25/23 19:17 Eos % (Auto) 0.2 % 09/25/23 19:17 Baso % (Auto) 0.2 % 09/25/23 19:17 Neut # (Auto) 3.30 K/uL (1.40-6.50) 09/25/23 19:17 Lymph # (Auto) 1.81 K/uL (1.20-3.40) 09/25/23 19:17 [place] # (Auto) 0.30 K/uL (0.11-0.59) 09/25/23 19:17 Eos # (Auto) 0.01 K/uL (0.00-0.50) 09/25/23 19:17 Baso # (Auto) 0.01 K/uL (0.00-0.20) 09/25/23 19:17 Immature Gran # (Auto) 0.04 K/uL (0.01-0.20) 09/25/23 19:17 PT 10.4 Seconds (9.0-12.0) 09/25/23 19:17 INR 1.0 (0.9-1.1) 09/25/23 19:17 APTT 28 Seconds (21-31) 09/25/23 19:17 PTT Ratio 1.0 09/25/23 19:17 Sodium 135 mmol/L (136-145) L 09/25/23 19:17 Potassium 4.4 mmol/L (3.5-5.1) 09/25/23 19:17 Chloride 99 mmol/L (98-107) 09/25/23 19:17 Carbon Dioxide 28 mmol/L (21-32) 09/25/23 19:17 Anion Gap 8 (3-11) 09/25/23 19:17 BUN 22 mg/dl (6-23) 09/25/23 19:17 Creatinine 1.01 mg/dl (0.6-1.4) 09/25/23 19:17 Est Cr Clr Drug Dosing 69.4 ml/min 09/25/23 19:17 Est GFR ( Amer) 86.9 ml/min 09/25/23 19:17 Est GFR (Non-Af Amer) 75.0 ml/min 09/25/23 19:17 BUN/Creatinine Ratio 21.8 (10-20) H 09/25/23 19:17 Glucose 199 mg/dl (70-99(Fasting)) H 09/25/23 19:17 POC Glucose 176 mg/dl (70-99) H 09/25/23 23:14 Lactate 1.6 mmol/L (0.4-2.0) 09/25/23 21:17 Calcium 9.7 mg/dl (8.6-10.3) 09/25/23 19:17 Magnesium 1.6 mg/dl (1.7-2.4) L 09/25/23 19:17 Total Bilirubin 0.7 mg/dl (0.2-1.0) 09/25/23 19:17 AST 22 U/L (13-39) 09/25/23 19:17 ALT 21 U/L (7-52) 09/25/23 19:17 Alkaline Phosphatase 81 U/L (34-104) 09/25/23 19:17 Troponin I High Sens 14.0 pg/ml (0-20) 09/25/23 19:17 Total Protein 7.7 gm/dl (6.0-8.3) 09/25/23 19:17 Albumin 4.2 gm/dl (3.4-5.0) 09/25/23 19:17 Globulin 3.5 gm/dl (2.5-4.0) 09/25/23 19:17 Albumin/Globulin Ratio 1.2 (0.9-2) 09/25/23 19:17 Lipase < 3 U/L (11-82) L 09/25/23 19:17 Urine Color Yellow 09/25/23 Unknown Urine Appearance Clear (Clear) 09/25/23 Unknown Urine pH 5.5 (4.5-7.5) 09/25/23 Unknown Ur Specific [place] 1.027 (1.000-1.030) 09/25/23 Unknown Urine Protein 3+ (Negative) H 09/25/23 Unknown Urine Glucose (UA) Trace (Negative) H 09/25/23 Unknown Urine Ketones 1+ (Negative) H 09/25/23 Unknown Urine Blood Trace (Negative) H 09/25/23 Unknown Urine Nitrite Positive (Negative) A 09/25/23 Unknown Urine Bilirubin Negative (Negative) 09/25/23 Unknown Urine Urobilinogen Negative (Negative) 09/25/23 Unknown Ur Leukocyte Esterase Negative (Negative) 09/25/23 Unknown Urine WBC (Auto) 0-5 /hpf (0-5) 09/25/23 Unknown Urine RBC (Auto) 0-2 /hpf (0-2) 09/25/23 Unknown U Hyaline Cast (Auto) 3-5 /lpf (0-2) H 09/25/23 Unknown U Epithel Cells (Auto) 0-2 /hpf (0-2) 09/25/23 Unknown Urine Bacteria (Auto) 4+ (None Seen) H 09/25/23 Unknown Blood Type O Positive 09/25/23 19:18 Antibody Screen NEGATIVE 09/25/23 19:18 Impressions Abdomen/Pelvis CT 09/25/23 19:03 Exam(s): CT ABDOMEN + PELVIS With Contrast IV Amt: 90 ml optiray 320 EXAM: CT Abdomen and Pelvis With Intravenous Contrast CLINICAL HISTORY: Reason for exam: Abdominal pain, diarrhea, rectal bleeding. TECHNIQUE: Axial computed tomography images of the abdomen and pelvis with intravenous contrast. CTDI is 11.73 mGy and DLP is 609.31 mGy-cm. Automated exposure control was utilized for the study. A dose lowering technique was utilized adhering to the principles of ALARA. CONTRAST: Patient received 90 ml optiray 320 of IV contrast COMPARISON: 03/11/2023 FINDINGS: Lung bases: Lung bases demonstrate chronic fibrosis with cystic changes and possible bronchiectasis. No consolidation. ABDOMEN: Liver: Unremarkable. No mass. Gallbladder and bile ducts: Unremarkable. No calcified stones. No ductal dilation. Pancreas: Unremarkable. No mass. No ductal dilation. Spleen: Unremarkable. No splenomegaly. Adrenals: 1.4 cm right adrenal nodule stable from prior exam. Kidneys and ureters: 2 cm simple cyst arising off the mid right kidney. No further workup is required. No hydronephrosis. Stomach and bowel: Severe wall thickening left colon and sigmoid colons with surrounding inflammation consistent with either a ischemic or infectious colitis. No obstruction. PELVIS: Appendix: No findings to suggest acute appendicitis. Bladder: Unremarkable. No mass. Reproductive: Unremarkable as visualized. ABDOMEN and PELVIS: Intraperitoneal space: Unremarkable. No free air. No significant fluid collection. Bones/joints: No acute fracture. No dislocation. Soft tissues: Unremarkable. Vasculature: Unremarkable. No abdominal aortic aneurysm. Lymph nodes: Unremarkable. No enlarged lymph nodes. IMPRESSION: 1. Severe wall thickening left colon and sigmoid colons with surrounding inflammation consistent with either a ischemic or infectious colitis. 2. Lung bases demonstrate chronic fibrosis with cystic changes and possible bronchiectasis. Electronically signed by: Perico Hu M.D. 09/25/23 21:36 PM Code Status & VTE Plan Code Status Full code VTE Prophylaxis Plan VTE Prophylaxis will be ordered: Yes PG Care Time/CCT Total # of Minutes Spent Total Time Spent with Patient: Total time spent is greater than 50% in coordination of care (as documented) at patient's floor/unit and/or counseling patient: Coding Level of Care Code 05337 INT INP/OBS CARE 3/75MIN Diagnoses Colitis K52.9 Type 2 diabetes mellitus treated with insulin E11.9; Z79.4 Primary cancer of left upper lobe of lung C34.12 Metastatic adenocarcinoma C79.9 Interstitial lung disease J84.9 CAD, multiple vessel I25.10 Asymptomatic microscopic hematuria R31.21 Pulmonary interstitial fibrosis J84.10 Diabetes mellitus type 2, uncontrolled E11.65 Hx of CABG Z95.1 UTI (urinary tract infection) N39.0 Food poisoning A05.9
[2023-09-25] MEDS: PIPERACILLIN/TAZOBACTAM 4.5 GM/100 ML BAG IV ONE (23:56)
[2023-09-25] MEDS: PANTOprazole 40 MG in SYRINGE 0 ML IV STA (23:57)
[2023-09-25] MEDS: LACTATED RINGER'S 1,000 ML IV STA (23:58)
[2023-09-26] MEDS ORDERED: ACETAMINOPHEN 325 MG TAB PO PRN (00:30)
[2023-09-26] MEDS ORDERED: OLANZAPINE 2.5 MG TAB PO PRN (00:30)
[2023-09-26] MEDS ORDERED: DEXTROSE 50% 50 ML SYRINGE IV PRN (00:30)
[2023-09-26] MEDS ORDERED: ONDANSETRON INJ 2 MG/ML 2 ML VIAL IV PRN (00:30)
[2023-09-26] MEDS ORDERED: GLUCAGON FOR INJ 1 MG VIAL SQ PRN (00:30)
[2023-09-26] MEDS ORDERED: CARBOHYDRATES FOR HYPOGLYCEMIA PO PRN (00:30)
[2023-09-26] MEDS ORDERED: GLUCOSE 40% GEL 15 GM TUBE PO PRN (00:30)
[2023-09-26] MEDS ORDERED: GLUCOSE 10 TAB/TUBE PO PRN (00:30)
[2023-09-26] MEDS ORDERED: ALBUTEROL HFA 8 GM INHALER INH PRN (00:30)
[2023-09-26] MEDS: PIPERACILLIN/TAZOBACTAM 4.5 GM in DEXTROSE 5% MINI-B 100 ML IV SCH (06:15)
[2023-09-26 06:35] LABS: Basophils # (auto) 0.02 K/uL (0.00-0.20); Basophils % (auto) 0.5 %; Eosinophils # (auto) 0.02 K/uL (0.00-0.50); Eosinophils % (auto) 0.5 %; Hematocrit (blood only) 34.9 % (42.0-52.0); Hemoglobin 11.8 g/dl (14.0-18.0); Immature Granulocytes # (auto) 0.07 K/uL (0.01-0.20); Immature Granulocytes % (auto) 1.8 %; Lymphocytes # (auto) 1.55 K/uL (1.20-3.40); Lymphocytes % (auto) 40.7 %; Mean Corpuscular Hemoglobin 30.7 pg (25.0-34.0); Mean Corpuscular Hgb Conc 33.8 g/dL (32.0-36.0); Mean Corpuscular Volume 90.9 fL (80.0-100.0); Mean Platelet Volume 10.2 fL (9.4-12.4); Monocytes # (auto) 0.39 K/uL (0.11-0.59); Monocytes % (auto) 10.2 %; Neutrophils # (auto) 1.76 K/uL (1.40-6.50); Neutrophils % (auto) 46.3 %; Platelet Count 207 K/uL (130-400); RDW Coefficient of Variation 14.6 % (11.5-14.5); RDW Standard Deviation 48.5 fL (36.4-46.3); Red Blood Count 3.84 M/uL (4.70-6.10); White Blood Count 3.81 K/ul (4.8-10.8)
[2023-09-26 06:37] LABS: Albumin Globulin Ratio 1.1 (0.9-2); Albumin Level 3.2 gm/dl (3.4-5.0); BUN Creatinine Ratio 22.4 (10-20); Bilirubin,Total 0.7 mg/dl (0.2-1.0); Calcium 8.3 mg/dl (8.6-10.3); Creatinine Clr Calc Pharmacy 92.2 ml/min; Est GFR (African American) 107.1 ml/min; Est GFR (Non-African American) 92.4 ml/min; Globulin 2.8 gm/dl (2.5-4.0); Magnesium 1.8 mg/dl (1.7-2.4); Potassium 3.9 mmol/L (3.5-5.1)
[2023-09-26 07:14] LABS: Estimated Average Glucose 203 mg/dl; Hemoglobin A1C 8.7 % (4.5-5.6)
--- NOTE | 2023-09-26 07:37 | XRay Report ---
XR chest 1V portable CLINICAL HISTORY: Rectal bleeding COMPARISON STUDY: Chest radiograph February 14, 2023. PET/CT September 18, 2023. FINDINGS: There are median sternotomy wires and mediastinal surgical clips. Cardiomediastinal silhoue tte is stable. No pneumothorax or pleural effusion. Lower lung interstitial thickening is unchanged. This is chronic. Left upper lobe nodule is better depicted on PET/CT of September 18, 2023. No superimposed consolidation is identified. There is no evidence for pulmonary edema. IMPRESSION: 1. No acute cardiopulmonary findings. Chronic lower lung interstitial thickening. 2. Left upper lobe nodule, better depicted on PET/CT of September 18, 2023. ACT 112: Negative or not required by law. Electronically signed by: Carlos Waddell M.D. 09/26/2023 7:36 AM
--- NOTE | 2023-09-26 07:52 | Electrocardiogram Report ---
Test Reason : Blood Pressure : / mmHG Vent. Rate : 104 BPM Atrial Rate : 104 BPM P-R Int : 182 ms QRS Dur : 070 ms QT Int : 334 ms P-R-T Axes : 073 016 140 degrees QTc Int : 439 ms Sinus tachycardia Left atrial enlargement Diffuse Nonspecific ST and T wave abnormality Abnormal ECG When compared with ECG of 02-NOV-2022 16:26, MI interval has decreased Nonspecific T wave abnormality, worse in Lateral leads Confirmed by Emmett Delgado ([id number]) on 09/26/2023 7:52:12 AM Referred By: REFERRED SELF Confirmed By:Emmett Delgado
[2023-09-26] MEDS: FOLIC ACID 1 MG TAB PO SCH (08:28)
[2023-09-26] MEDS: ATORVASTATIN 40 MG TAB PO SCH (08:28)
[2023-09-26] MEDS: METOPROLOL SUCC 50MG EXT REL TAB PO SCH (08:28)
[2023-09-26] MEDS: INSULIN ASPART PER UNIT CHARGE SC SCH (08:43)
[2023-09-26] MEDS: HYDROCORTISONE SOD 50 MG in SYRINGE 0 ML IV SCH (09:25)
[2023-09-26] MEDS: PANTOprazole 40 MG in SYRINGE 0 ML IV SCH (09:26)
[2023-09-26 10:26] LABS: Adenovirus F 40/41 PCR Not Detected (NotDetected); Astrovirus PCR Not Detected (NotDetected); Campylobacter PCR Not Detected (NotDetected); Cryptosporidium PCR Not Detected (NotDetected); Cyclospora cayetanensis PCR Not Detected (NotDetected); Entamoeba histolytica PCR Not Detected (NotDetected); Enteroaggregative E.coli(EAEC) Not Detected (NotDetected); Enteropathogenic E.coli (EPEC) Not Detected (NotDetected); Enterotoxigenic E.coli (ETEC) Not Detected (NotDetected); Giardia lamblia PCR Not Detected (NotDetected); Norovirus GI/GII PCR Not Detected (NotDetected); Plesiomonas shigelloides PCR Not Detected (NotDetected); Rotavirus A PCR Not Detected (NotDetected); Salmonella PCR Not Detected (NotDetected); Sapovirus PCR Not Detected (NotDetected); Shiga-like Toxin E.coli (STEC) Not Detected (NotDetected); Shigella/Enteroinvasive E.coli Not Detected (NotDetected); Vibrio cholerae PCR Not Detected (NotDetected); Vibrio species PCR Not Detected (NotDetected); Yersinia enterocolitica PCR Not Detected (NotDetected)
--- NOTE | 2023-09-26 14:52 | Hospitalist Progress Note ---
Date of Service September 26, 2023 Assessment & Plan (1) Hemorrhagic enteritis: Plan: Stool BioFire pending. He is now on Flagyl and Cipro, day 1. He has well water at home which raises the possibility of giardiasis. Monitor H&H. IV fluids (2) Type 2 diabetes mellitus treated with insulin: Plan: Basal insulin therapy. Sliding scale coverage as needed (3) Primary cancer of left upper lobe of lung: Plan: Outpatient follow-up with oncology. No intervention at this time (4) Interstitial lung disease: Plan: Stable. Steroid-dependent (5) CAD, multiple vessel: Plan: Stable. Continue current medical management (6) UTI (urinary tract infection): Plan: Possible. Await urine culture results. Continue intravenous Cipro and Flagyl, day 1 (7) Steroid dependence: Plan: IV hydrocortisone for now. Eventual switch back to oral prednisone Plan Hopeful discharge to home within the next 2 or 3 days. Admission and Anticipated Discharge Date Admission Date: September 25, 2023 Subjective Alert and oriented. No complaints. He appears to have an infectious hemorrhagic enteritis. He does have well water at home which raises the possibility of giardiasis. He is now on intravenous Flagyl and Cipro, day 1. He is steroid-dependent and is now on intravenous hydrocortisone. Will repeat hemoglobin level again this afternoon and monitor it daily. Review of Systems 2 Review of Systems: Constitutional-no fever or chills ENT-no blurred vision, no double vision, no epistaxis, no sore throat Respiratory-no cough, no wheezing, no shortness of breath Cardiac-no palpitations, no chest pain, no syncope GI-no nausea, vomiting, melena. Bloody diarrhea -no urinary retention, no urinary incontinence, no dysuria, no hematuria Musculoskeletal-no joint pain, no muscle tenderness Skin-no bruising, no rashes, no pruritus Neuro-no isolated weakness, no paresthesia, no weakness Psych-no depression, no anxiety Physical Exam 2 Physical Exam: General-alert and oriented x3, no fever, no chills HEENT-head atraumatic and normocephalic, pupils equal and reactive to light, extraocular muscles intact Neck-no lymphadenopathy or thyromegaly, trachea midline Chest-clear to auscultation. No rales, wheezing or rhonchi Cardiac-regular rate and rhythm, normal S1 and S2 Abdomen-normal bowel sounds, no hepatosplenomegaly. Mild diffuse tenderness. No masses. No rebound or guarding Extremities-no cyanosis, clubbing, or edema Neuro-cranial nerves II through XII intact, motor and sensory function within normal limits, strength symmetrical, no focal deficits Psych-normal affect, normal mood Results & Data Results & Data Vital Signs (Past 12 Hours) Vital Signs Temp Pulse Pulse Resp BP BP Pulse Ox 09/26/23 12:17 85 09/26/23 12:10 36.7 C 80 20 113/69 96 09/26/23 11:42 09/26/23 11:00 68 20 93 09/26/23 11:00 131/70 09/26/23 10:30 79 17 93 09/26/23 10:19 36.5 C 72 16 139/80 96 09/26/23 10:00 77 21 93 09/26/23 09:30 87 19 95 09/26/23 09:00 144/83 H 09/26/23 09:00 96 H 20 95 09/26/23 08:32 99 H 23 95 09/26/23 08:00 155/79 H 09/26/23 08:00 84 15 95 09/26/23 07:33 80 09/26/23 07:30 78 18 94 09/26/23 07:00 137/74 09/26/23 07:00 85 18 93 09/26/23 06:30 81 21 94 09/26/23 06:00 97 H 116/73 94 09/26/23 05:00 79 20 117/66 94 09/26/23 04:00 83 19 123/61 93 09/26/23 03:00 86 20 111/62 94 O2 Del Method 09/26/23 12:17 09/26/23 12:10 Room Air 09/26/23 11:42 Room Air 09/26/23 11:00 09/26/23 11:00 09/26/23 10:30 09/26/23 10:19 Room Air 09/26/23 10:00 09/26/23 09:30 09/26/23 09:00 09/26/23 09:00 09/26/23 08:32 09/26/23 08:00 09/26/23 08:00 09/26/23 07:33 09/26/23 07:30 09/26/23 07:00 09/26/23 07:00 09/26/23 06:30 09/26/23 06:00 09/26/23 05:00 09/26/23 04:00 09/26/23 03:00 Laboratory Results 09/26/23 06:00 09/26/23 06:00 PG Care Time/CCT Total # of Minutes Spent Total Time Spent with Patient: Total time spent is greater than 50% in coordination of care (as documented) at patient's floor/unit and/or counseling patient: Coding Level of Care Code 34651 SUB INP/OBS CARE 3/50MIN Diagnoses Hemorrhagic enteritis K52.9 Type 2 diabetes mellitus treated with insulin E11.9; Z79.4 Primary cancer of left upper lobe of lung C34.12 Interstitial lung disease J84.9 CAD, multiple vessel I25.10 UTI (urinary tract infection) N39.0 Steroid dependence F19.20
[2023-09-26] MEDS: metroNIDAZOLE 500 MG/100 ML BAG IV SCH (15:45)
[2023-09-26] MEDS: CIPROFLOXACIN / D5W 400 MG/200 ML BAG IV SCH (15:45)
[2023-09-26 16:26] LABS: Hematocrit (blood only) 35.1 % (42.0-52.0); Hemoglobin 11.6 g/dl (14.0-18.0)
[2023-09-26] MEDS: PANTOprazole 40 MG TAB PO SCH (21:29)
[2023-09-26] MEDS: LANTUS PER UNIT CHARGE SQ SCH (21:35)
[2023-09-26 23:15] LABS: Adenovirus F 40/41 PCR Not Detected (NotDetected); Astrovirus PCR Not Detected (NotDetected); Campylobacter PCR Not Detected (NotDetected); Cryptosporidium PCR Not Detected (NotDetected); Cyclospora cayetanensis PCR Not Detected (NotDetected); Entamoeba histolytica PCR Not Detected (NotDetected); Enteroaggregative E.coli(EAEC) Not Detected (NotDetected); Enteropathogenic E.coli (EPEC) Not Detected (NotDetected); Enterotoxigenic E.coli (ETEC) Not Detected (NotDetected); Giardia lamblia PCR Not Detected (NotDetected); Norovirus GI/GII PCR Not Detected (NotDetected); Plesiomonas shigelloides PCR Not Detected (NotDetected); Rotavirus A PCR Not Detected (NotDetected); Salmonella PCR Not Detected (NotDetected); Sapovirus PCR Not Detected (NotDetected); Shiga-like Toxin E.coli (STEC) Not Detected (NotDetected); Shigella/Enteroinvasive E.coli Not Detected (NotDetected); Vibrio cholerae PCR Not Detected (NotDetected); Vibrio species PCR Not Detected (NotDetected); Yersinia enterocolitica PCR Not Detected (NotDetected)
[2023-09-27 06:18] LABS: Basophils # (auto) 0.01 K/uL (0.00-0.20); Basophils % (auto) 0.3 %; Eosinophils # (auto) 0.01 K/uL (0.00-0.50); Eosinophils % (auto) 0.3 %; Hematocrit (blood only) 30.8 % (42.0-52.0); Hemoglobin 10.1 g/dl (14.0-18.0); Immature Granulocytes # (auto) 0.07 K/uL (0.01-0.20); Immature Granulocytes % (auto) 1.8 %; Lymphocytes # (auto) 1.28 K/uL (1.20-3.40); Lymphocytes % (auto) 32.2 %; Mean Corpuscular Hemoglobin 29.9 pg (25.0-34.0); Mean Corpuscular Hgb Conc 32.8 g/dL (32.0-36.0); Mean Corpuscular Volume 91.1 fL (80.0-100.0); Mean Platelet Volume 10.7 fL (9.4-12.4); Monocytes # (auto) 0.77 K/uL (0.11-0.59); Monocytes % (auto) 19.4 %; Neutrophils # (auto) 1.83 K/uL (1.40-6.50); Platelet Count 152 K/uL (130-400); RDW Coefficient of Variation 14.3 % (11.5-14.5); RDW Standard Deviation 47.8 fL (36.4-46.3); Red Blood Count 3.38 M/uL (4.70-6.10); White Blood Count 3.97 K/ul (4.8-10.8)
[2023-09-27 06:29] LABS: Albumin Globulin Ratio 1.1 (0.9-2); Albumin Level 3.1 gm/dl (3.4-5.0); BUN Creatinine Ratio 16.1 (10-20); Bilirubin,Total 0.7 mg/dl (0.2-1.0); Calcium 8.4 mg/dl (8.6-10.3); Creatinine Clr Calc Pharmacy 81.1 ml/min; Est GFR (African American) 101.3 ml/min; Est GFR (Non-African American) 87.4 ml/min; Globulin 2.7 gm/dl (2.5-4.0); Magnesium 1.6 mg/dl (1.7-2.4); Potassium 3.8 mmol/L (3.5-5.1); Total Protein 5.8 gm/dl (6.0-8.3)
--- NOTE | 2023-09-27 11:59 | Hospitalist Progress Note ---
Date of Service September 27, 2023 Assessment & Plan (1) Hemorrhagic enteritis: Plan: Stool BioFire negative. Will continue Flagyl and Cipro, day 2. He has well water at home which raises the possibility of giardiasis. Monitor H&H. IV fluids have been discontinued (2) Type 2 diabetes mellitus treated with insulin: Plan: Basal insulin therapy. Sliding scale coverage as needed (3) Primary cancer of left upper lobe of lung: Plan: Outpatient follow-up with oncology. No intervention at this time (4) Interstitial lung disease: Plan: Stable. Steroid-dependent (5) CAD, multiple vessel: Plan: Stable. Continue current medical management (6) UTI (urinary tract infection): Plan: Possible. Only pinpoint growth seen on culture. Continue intravenous Cipro and Flagyl, day 2 (7) Steroid dependence: Plan: IV hydrocortisone has been down titrated today, September 26. Eventual switch back to oral prednisone at discharge Plan Hopeful discharge to home tomorrow, September 27 Admission and Anticipated Discharge Date Admission Date: September 25, 2023 Subjective Alert and oriented. The GI blood loss is resolving. Hemoglobin is down slightly to 10.1. This is probably a combination of IV fluid dilution and GI blood loss. Stool BioFire is negative. Intravenous hydrocortisone has been down titrated today and he will be switched back to oral prednisone therapy at discharge. Continue Cipro and Flagyl IV for now, day 2. Hopefully he can go home tomorrow, September 27. Urine culture only shows pinpoint growth. Review of Systems 2 Review of Systems: Constitutional-no fever or chills ENT-no blurred vision, no double vision, no epistaxis, no sore throat Respiratory-no cough, no wheezing, no shortness of breath Cardiac-no palpitations, no chest pain, no syncope GI-no nausea, vomiting, melena. Bloody diarrhea -no urinary retention, no urinary incontinence, no dysuria, no hematuria Musculoskeletal-no joint pain, no muscle tenderness Skin-no bruising, no rashes, no pruritus Neuro-no isolated weakness, no paresthesia, no weakness Psych-no depression, no anxiety Physical Exam 2 Physical Exam: General-alert and oriented x3, no fever, no chills HEENT-head atraumatic and normocephalic, pupils equal and reactive to light, extraocular muscles intact Neck-no lymphadenopathy or thyromegaly, trachea midline Chest-clear to auscultation. No rales, wheezing or rhonchi Cardiac-regular rate and rhythm, normal S1 and S2 Abdomen-normal bowel sounds, no hepatosplenomegaly. Mild diffuse tenderness. No masses. No rebound or guarding Extremities-no cyanosis, clubbing, or edema Neuro-cranial nerves II through XII intact, motor and sensory function within normal limits, strength symmetrical, no focal deficits Psych-normal affect, normal mood Results & Data Results & Data Vital Signs (Past 12 Hours) Vital Signs Temp Pulse Pulse Resp BP BP Pulse Ox 09/27/23 10:36 36.8 C 62 18 108/59 L 97 09/27/23 08:27 64 09/27/23 08:15 36.7 C 61 18 121/66 95 09/27/23 07:23 09/27/23 02:41 36.8 C 55 L 16 141/59 H 96 09/27/23 00:01 69 O2 Del Method 09/27/23 10:36 Room Air 09/27/23 08:27 09/27/23 08:15 Room Air 09/27/23 07:23 Room Air 09/27/23 02:41 Room Air 09/27/23 00:01 Laboratory Results 09/27/23 05:21 09/27/23 05:21 PG Care Time/CCT Total # of Minutes Spent Total Time Spent with Patient: Total time spent is greater than 50% in coordination of care (as documented) at patient's floor/unit and/or counseling patient: Coding Level of Care Code 04611 SUB INP/OBS CARE 3/50MIN Diagnoses Hemorrhagic enteritis K52.9 Type 2 diabetes mellitus treated with insulin E11.9; Z79.4 Primary cancer of left upper lobe of lung C34.12 Interstitial lung disease J84.9 CAD, multiple vessel I25.10 UTI (urinary tract infection) N39.0 Steroid dependence F19.20
[2023-09-27] MEDS: HYDROCORTISONE SOD 25 MG in SYRINGE 0 ML IV SCH (20:09)
[2023-09-28 06:43] LABS: Basophils # (auto) 0.02 K/uL (0.00-0.20); Basophils % (auto) 0.4 %; Eosinophils # (auto) 0.04 K/uL (0.00-0.50); Eosinophils % (auto) 0.7 %; Hematocrit (blood only) 28.5 % (42.0-52.0); Hemoglobin 9.2 g/dl (14.0-18.0); Immature Granulocytes # (auto) 0.07 K/uL (0.01-0.20); Immature Granulocytes % (auto) 1.2 %; Lymphocytes # (auto) 2.01 K/uL (1.20-3.40); Lymphocytes % (auto) 35.7 %; Mean Corpuscular Hemoglobin 30.2 pg (25.0-34.0); Mean Corpuscular Hgb Conc 32.3 g/dL (32.0-36.0); Mean Corpuscular Volume 93.4 fL (80.0-100.0); Mean Platelet Volume 10.5 fL (9.4-12.4); Monocytes # (auto) 1.02 K/uL (0.11-0.59); Monocytes % (auto) 18.1 %; Neutrophils # (auto) 2.47 K/uL (1.40-6.50); Neutrophils % (auto) 43.9 %; Platelet Count 120 K/uL (130-400); RDW Coefficient of Variation 14.3 % (11.5-14.5); RDW Standard Deviation 48.4 fL (36.4-46.3); Red Blood Count 3.05 M/uL (4.70-6.10); White Blood Count 5.63 K/ul (4.8-10.8)
[2023-09-28 08:18] LABS: Albumin Globulin Ratio 1.1 (0.9-2); Albumin Level 2.9 gm/dl (3.4-5.0); BUN Creatinine Ratio 16.2 (10-20); Bilirubin,Total 0.4 mg/dl (0.2-1.0); Calcium 8.2 mg/dl (8.6-10.3); Creatinine Clr Calc Pharmacy 59.3 ml/min; Est GFR (African American) 72.8 ml/min; Est GFR (Non-African American) 62.8 ml/min; Globulin 2.7 gm/dl (2.5-4.0); Magnesium 1.6 mg/dl (1.7-2.4); Potassium 3.8 mmol/L (3.5-5.1); Total Protein 5.6 gm/dl (6.0-8.3)
[2023-09-28] MEDS: MAGNESIUM SULFATE / D5W 1 GM/100 ML BAG IV ONE (09:40)
--- NOTE | 2023-09-28 11:07 | Discharge Summary ---
Date of Service September 28, 2023 Admission HPI Per Admitting Provider The patient is a 68-year-old male medical history with a past medical history including primary cancer of left upper lobe of lung, diabetes mellitus type 2 treated with insulin, COPD, multivessel CAD, status post CABG, hypertension, and pulmonary cystic fibrosis. He presents to the emergency department in the immunocompromised state on chemotherapy, with diarrhea concerning for food poisoning as noted above. Principal Diagnosis Hemorrhagic enteritis, staph UTI Discharge Exam General-alert and oriented x3, no fever, no chills HEENT-head atraumatic and normocephalic, pupils equal and reactive to light, extraocular muscles intact Neck-no lymphadenopathy or thyromegaly, trachea midline Chest-clear to auscultation. No rales, wheezing or rhonchi Cardiac-regular rate and rhythm, normal S1 and S2 Abdomen-normal bowel sounds, no hepatosplenomegaly. Mild diffuse tenderness. No masses. No rebound or guarding Extremities-no cyanosis, clubbing, or edema Neuro-cranial nerves II through XII intact, motor and sensory function within normal limits, strength symmetrical, no focal deficits Psych-normal affect, normal mood Discharge Data Allergies Allergy/AdvReac Type Severity Reaction Status Date / Time No Known Drug Allergies Allergy Unknown Verified 09/17/23 08:20 Consultations 09/25/23 22:15 ED Decision to Admit Stat Ordered Studies 09/25/23 19:03 CT abd pelvis IV con only Stat Hospital Course (1) Hemorrhagic enteritis: Stool BioFire negative. Treated while hospitalized with Flagyl and Cipro. He has well water at home but giardiasis was not identified in stool BioFire. Now resolved. IV fluids have been discontinued (2) Type 2 diabetes mellitus treated with insulin: Basal insulin therapy. Sliding scale coverage as needed (3) Primary cancer of left upper lobe of lung: Outpatient follow-up with oncology. No intervention at this time (4) Interstitial lung disease: Stable. Steroid-dependent (5) CAD, multiple vessel: Stable. Continue current medical management (6) UTI (urinary tract infection): Staph isolated. Final sensitivities pending. He will be discharged home on oral Cipro. (7) Steroid dependence: IV hydrocortisone was administered while hospitalized. He will transition back to his usual prednisone dosage at discharge. Plan Home today, September 27 Total Time Total Time Spent Total Time Spent (In Minutes): 45 minutes Discharge Plan Discharge Items Patient Disposition: Home - Self-Care Reason For Visit: COLITIS, FOOD POISONING, PROSTATITIS/UTI Discharge Diagnosis: Hemorrhagic enteritis, staph UTI Activity: Resume your previous activity Non-emergency contact: Primary Care Provider Call non-emergency contact if: your symptoms worsen Follow-up/Referrals: Teo Ding MD [Primary Care Provider] - Diet: Carb Consistent or DM2 and Heart Healthy Addtl Attending Provider Instructions: Take Cipro antibiotic twice daily for 1 week Pending Studies at Discharge: Yes Studies:: Staph sensitivities Stand-Alone Forms: My [facility] What's On Foodie, Smoking Cessation Medications and DC Order Prescriptions: New ciprofloxacin HCl [Cipro] 500 mg tablet 500 mg PO BID Qty: 14 0RF Continued qkdejbdy-zpta-pamjk-oreg-capry 100 mg-150 mg- 50 mg-150 mg capsule 1 cap PO DAILY insulin glargine [Basaglar KwikPen U-100 Insulin] 100 unit/mL (3 mL) insulin pen 28 - 38 unit subcut QPM Qty: 15 11RF Rx Instructions: 0 units if <150 atorvastatin 80 mg tablet 80 mg PO QAM Qty: 90 3RF benzonatate 200 mg capsule 200 mg PO TID PRN (Reason: cough) Qty: 30 5RF metformin 1,000 mg tablet 1,000 mg PO BID Qty: 180 3RF metoprolol succinate 100 mg tablet extended release 24 hr 100 mg PO DAILY Qty: 90 3RF losartan 25 mg tablet 25 mg PO DAILY Qty: 90 3RF Rx Instructions: for diabetic kidney protection albuterol sulfate 90 mcg/actuation HFA aerosol inhaler 2 puff inhalation Q6H PRN (Reason: shortness of breath or wheezing) Qty: 8.5 3RF zinc 50 mg tablet 50 mg PO DAILY Rx Instructions: gummy aspirin 81 mg tablet,delayed release (DR/EC) 81 mg PO QAM multivitamin Tablet 1 tab PO DAILY cholecalciferol (vitamin D3) [Vitamin D3] 25 mcg (1,000 unit) tablet 1,000 unit PO DAILY ondansetron HCl 8 mg tablet 8 mg PO Q8 PRN (Reason: Nausea And Vomiting) olanzapine 2.5 mg tablet 2.5 mg PO UD Rx Instructions: take 1 tablet at bedtime for 4 days starting day 1 of chemotherapy for nausea glimepiride 4 mg tablet 4 mg PO BIDM Rx Instructions: meals prednisone 10 mg tablet 10 mg PO DAILY triamcinolone acetonide 0.1 % cream 1 applic TOPICAL BID PRN (Reason: Skin Irritation) pantoprazole 40 mg tablet,delayed release (DR/EC) 40 mg PO DAILY folic acid 1 mg tablet 1 mg PO UD Januvia 100 mg tablet 100 mg PO QDB Discharge Orders: Discharge Order (Routine); Ordered 09/28/23 Ordered By: Chapito Bautista/Other Patient Handouts: Managing Type 2 Diabetes Admission Data Admit Date/Time: 09/25/23 23:13 Attending Provider: Chapito Petersen Admit Provider: Abran Araujo Primary Care Provider: Teo Ding Other Providers: Abran Araujo Coding Level of Care Code 42672 INP/OBS DISCH >30 MIN Diagnoses Hemorrhagic enteritis K52.9 Type 2 diabetes mellitus treated with insulin E11.9; Z79.4 Primary cancer of left upper lobe of lung C34.12 Interstitial lung disease J84.9 CAD, multiple vessel I25.10 UTI (urinary tract infection) N39.0 Steroid dependence F19.20
[2023-09-29] MEDS ORDERED: predniSONE 10 MG TABLET PO SCH (09:00)
== END 2023-09-28 12:01 | disposition home or self-care (01) ==
LOC: EDINP 18:39 → ED 18:39 → SUATTDRO 23:13 → 2N 09-26 11:42